=== PATIENT | female | born 1960 | race Caucasian/White ===

== ENCOUNTER → 2019-09-17 | Outpatient (CLI) | payer MEDICARE ==
--- NOTE | 2019-09-17 11:52 | XR ---
EXAMINATION TYPE: XR shoulder complete LT DATE OF EXAM: 09/17/2019 CLINICAL HISTORY: Left shoulder pain after lifting injury. Limited range of motion. TECHNIQUE: Three views of the left shoulder are obtained. COMPARISON: None. FINDINGS: There is no acute fracture/dislocation evident in the left shoulder. Calcific tendinopathy is seen of the insertional fibers of the rotator cuff. The acromioclavicular and glenohumeral joint spaces appear aligned. Moderate acromioclavicular arthropathy with small marginal osteophytes and cap sular hypertrophy. The visualized ribs are intact and unremarkable. IMPRESSION: 1. No acute fracture or dislocation in the left shoulder. 2. Moderate left acromioclavicular arthropathy and calcific tendinopathy of the rotator cuff insertio nal fibers.
== END | disposition home or self-care (01) ==
LOC: RADXRMAIN 11:16
PROVIDERS: ATTEND Internal Medicine
DX: M12.812 Other specific arthropathies, not elsewhere classified, left shoulder (principal)

== ENCOUNTER 2020-09-24 20:18 | Inpatient (IN) | payer MEDICARE ==
[2020-09-24] MEDS ORDERED: ACETAMINOPHEN TAB 500 MG TAB PO STA (21:21)
[2020-09-24] MEDS: SODIUM CHLORIDE 0.9% 500 ML 500 ML IV SCH ×2 (21:38→23:18)
[2020-09-24] MEDS: SODIUM CHLORIDE 0.9% 1,000 ML IV SCH ×2 (21:38→23:19)
--- NOTE | 2020-09-24 21:50 | XR ---
EXAMINATION TYPE: XR chest 1V portable DATE OF EXAM: 09/24/2020 COMPARISON: NONE HISTORY: Asthma. Of breath TECHNIQUE: Manuel view FINDINGS: There is some increased interstitial pulmonary density in both lungs. There is no heart violette lure. There are no hilar masses. There is no pleural effusion. There is right shoulder surgery noted. IMPRESSION: Mild pulmonary interstitial pneumonia that appears new compared to old exam. Normal heart .
--- NOTE | 2020-09-24 22:14 | ED ---
General Adult HPI - General Stated complaint: Abd Pain Time Seen by Provider: 09/24/20 20:30 Source: patient Mode of arrival: EMS Limitations: no limitations - History of Present Illness Initial comments: Jessica weeks 59-year-old female who presents the ER today via ambulance for evaluation of multiple complaints. Patient reports she began feeling sick last week. She had a television set with her primary care doctor and states she was prescribed 5 prescriptions one of which was azithromycin 1 was a steroid. She states that despite being compliant with these medications she is progressively felt worse. Today her son called her home multiple times and she did not answer so he went to her house to check on her and found her laying in bed, she appeared to be febrile she was sweating she states she didn't feel good had generalized body aches some stomach pain. She had not been eating or drinking. Patient reports mild cough no shortness of breath no chest pain. - Related Data Home Medications Medication Instructions Recorded Confirmed Albuterol Sulfate [Albuterol 2 puff PO RT-Q6H PRN 09/24/20 09/24/20 Sulfate Hfa] Amoxic-Pot Clav 875-125Mg 1 tab PO BID 09/24/20 09/24/20 [Augmentin 875-125] Gabapentin 600 mg PO TID 09/24/20 09/24/20 Ibuprofen [Motrin] 800 mg PO Q8H PRN 09/24/20 09/24/20 Lisinopril-Hctz 20-25 mg 1 tab PO DAILY 09/24/20 09/24/20 [Zestoretic 20-25] Montelukast Sodium [Singulair] 10 mg PO DAILY 09/24/20 09/24/20 Pioglitazone [Actos] 45 mg PO DAILY 09/24/20 09/24/20 Sertraline [Zoloft] 200 mg PO DAILY 09/24/20 09/24/20 amLODIPine [Norvasc] 5 mg PO DAILY 09/24/20 09/24/20 metFORMIN HCL 1,000 mg PO HS 09/24/20 09/24/20 metFORMIN HCL 1,500 mg PO DAILY 09/24/20 09/24/20 oxyCODONE HCL [oxyCODONE HCL (IR)] 15 mg PO QID PRN 09/24/20 09/24/20 predniSONE See Taper PO DIRECTED 09/24/20 09/24/20 tiZANidine HCL 4 mg PO Q8H PRN 09/24/20 09/24/20 Allergies Allergy/AdvReac Type Severity Reaction Status Date / Time ciprofloxacin [From Cipro] Allergy Rash/Hives Verified 09/24/20 22:20 Review of Systems ROS Statement: Those systems with pertinent positive or pertinent negative responses have been documented in the HPI. ROS Other: All systems not noted in ROS Statement are negative. Past Medical History History of Any Multi-Drug Resistant Organisms: None Reported Past Surgical History: Orthopedic Surgery Past Psychological History: No Psychological Hx Reported Smoking Status: Never smoker Past Alcohol Use History: None Reported Past Drug Use History: None Reported General Exam - General Exam Comments Initial Comments: Physical Exam GENERAL: Ill appearing female HENT: Normocephalic, Atraumatic. EYES: PERRL, EOMI PULMONARY: Unlabored respirations. CARDIOVASCULAR: RRR ABDOMEN: Soft and nontender with normal bowel sounds. SKIN: Warm, moist : Deferred NEUROLOGIC: Patient is alert and oriented x3. Moving all extremities spontaneously MUSCULOSKELETAL: Normal extremities with adequate strength and full range of motion. No lower extremity swelling or edema. No calf tenderness. PSYCHIATRIC: Normal psychiatric evaluation. Limitations: no limitations Course Vital Signs 09/24/20 09/24/20 20:38 23:16 Temperature 99.2 F 99.7 F H Pulse Rate 90 89 Respiratory 18 18 Rate Blood Pressure 128/93 155/82 O2 Sat by Pulse 96 97 Oximetry EKG Findings - EKG Comments: EKG Findings:: EKG was obtained as part a septic workup, EKG was obtained 2232, rate is 80 rhythm is sinus normal axis, normal intervals, CO 160, QRS 80, QTC 445 there are no acute ST elevations or depressions no evidence of ischemia, infarction or arrhythmia. Medical Decision Making - Medical Decision Making the patient was seen and evaluated history was obtained from patient and son at bedside Patient has been ill for approximately a week, on evaluation she appears as though she does not feel well Signs are stable there is no hypoxia The patient's age and duration of illness a septic workup was initiated S x-ray with evidence of pneumonia this is likely viral in the setting She has low lymphocytes, elevated LDH and ferritin these are concerning for likely COVID 19 She also has hyponatremia likely related to decreased oral intak, receiving IV fluids given the duration of the patient's illness her age and comorbidities including diabetes and morbid obesity I do feel she warrants admission for fluid resus citation and further observation. Patient is agreeable to this plan patient care was discussed with Dr. Quezada of the [facility] physician group who accepts the admission COVID positive, patient to be admitted - Lab Data Result diagrams: 09/26/20 13:02 09/26/20 13:02 Lab Results 09/24/20 09/24/20 09/24/20 Range/Units 22:00 22:10 22:10 WBC 6.2 (3.8-10.6) k/uL RBC 4.39 (3.80-5.40) m/uL Hgb 12.9 (11.4-16.0) gm/dL Hct 38.0 (34.0-46.0) % MCV 86.6 (80.0-100.0) fL MCH 29.4 (25.0-35.0) pg MCHC 34.0 (31.0-37.0) g/dL RDW 12.2 (11.5-15.5) % Plt Count 185 (150-450) k/uL MPV 8.0 Neutrophils % 83 % Lymphocytes % 11 % Monocytes % 3 % Eosinophils % 1 % Basophils % 1 % Neutrophils # 5.1 (1.3-7.7) k/uL Lymphocytes # 0.7 L (1.0-4.8) k/uL Monocytes # 0.2 (0-1.0) k/uL Eosinophils # 0.0 (0-0.7) k/uL Basophils # 0.0 (0-0.2) k/uL PT 9.8 (9.0-12.0) sec INR 0.9 (<1.2) APTT 22.1 (22.0-30.0) sec D-Dimer 0.55 (<0.60) mg/L FEU Sodium (137-145) mmol/L Potassium (3.5-5.1) mmol/L Chloride (98-107) mmol/L Carbon Dioxide (22-30) mmol/L Anion Gap mmol/L BUN (7-17) mg/dL Creatinine (0.52-1.04) mg/dL Est GFR (CKD-EPI)AfAm (>60 ml/min/1.73 sqM) Est GFR (CKD-EPI)NonAf (>60 ml/min/1.73 sqM) Glucose (74-99) mg/dL Plasma Lactic Acid Nish (0.7-2.0) mmol/L Calcium (8.4-10.2) mg/dL Magnesium (1.6-2.3) mg/dL Ferritin (10.0-291.0) ng/mL Total Bilirubin (0.2-1.3) mg/dL AST (14-36) U/L ALT (4-34) U/L Alkaline Phosphatase (38-126) U/L Lactate Dehydrogenase (313-618) U/L Creatine Kinase (30-135) U/L C-Reactive Protein (<10.0) mg/L Total Protein (6.3-8.2) g/dL Albumin (3.5-5.0) g/dL Procalcitonin (0.02-0.09) ng/mL Coronavirus (PCR) Detected A (Not Detectd) 09/24/20 09/24/20 09/24/20 Range/Units 22:10 22:10 22:10 WBC (3.8-10.6) k/uL RBC (3.80-5.40) m/uL Hgb (11.4-16.0) gm/dL Hct (34.0-46.0) % MCV (80.0-100.0) fL MCH (25.0-35.0) pg MCHC (31.0-37.0) g/dL RDW (11.5-15.5) % Plt Count (150-450) k/uL MPV Neutrophils % % Lymphocytes % % Monocytes % % Eosinophils % % Basophils % % Neutrophils # (1.3-7.7) k/uL Lymphocytes # (1.0-4.8) k/uL Monocytes # (0-1.0) k/uL Eosinophils # (0-0.7) k/uL Basophils # (0-0.2) k/uL PT (9.0-12.0) sec INR (<1.2) APTT (22.0-30.0) sec D-Dimer (<0.60) mg/L FEU Sodium 129 L (137-145) mmol/L Potassium 4.4 (3.5-5.1) mmol/L Chloride 98 (98-107) mmol/L Carbon Dioxide 19 L (22-30) mmol/L Anion Gap 12 mmol/L BUN 20 H (7-17) mg/dL Creatinine 0.61 (0.52-1.04) mg/dL Est GFR (CKD-EPI)AfAm >90 (>60 ml/min/1.73 sqM) Est GFR (CKD-EPI)NonAf >90 (>60 ml/min/1.73 sqM) Glucose 347 H (74-99) mg/dL Plasma Lactic Acid Nish 1.1 (0.7-2.0) mmol/L Calcium 8.9 (8.4-10.2) mg/dL Magnesium 1.5 L (1.6-2.3) mg/dL Ferritin 239.2 (10.0-291.0) ng/mL Total Bilirubin 0.7 (0.2-1.3) mg/dL AST 32 (14-36) U/L ALT 28 (4-34) U/L Alkaline Phosphatase 78 (38-126) U/L Lactate Dehydrogenase 815 H (313-618) U/L Creatine Kinase 38 (30-135) U/L C-Reactive Protein 137.0 H (<10.0) mg/L Total Protein 6.8 (6.3-8.2) g/dL Albumin 3.7 (3.5-5.0) g/dL Procalcitonin 0.09 (0.02-0.09) ng/mL Coronavirus (PCR) (Not Detectd) Disposition Clinical Impression: Pneumonia Disposition: ADMITTED IP TO THIS HOSP Condition: Stable Is patient prescribed a controlled substance at d/c from ED?: No
[2020-09-24 22:23] LABS: Basophils % (A) 1 %; Eosinophils % (A) 1 %; HGB 12.9 gm/dL (11.4-16.0); Lymphocytes # (A) 0.7 k/uL (1.0-4.8); Lymphocytes % (A) 11 %; MCH 29.4 pg (25.0-35.0); MCV 86.6 fL (80.0-100.0); Monocytes # (A) 0.2 k/uL (0-1.0); Monocytes % (A) 3 %; Neutrophils # (A) 5.1 k/uL (1.3-7.7); Neutrophils % (A) 83 %; Platelet Count 185 k/uL (150-450); RBC 4.39 m/uL (3.80-5.40); RDW 12.2 % (11.5-15.5); WBC 6.2 k/uL (3.8-10.6)
[2020-09-24 22:37] LABS: ALT 28 U/L (4-34); AST 32 U/L (14-36); African American GFR (CKD) >90 (>60 ml/min/1.73 sqM); Albumin 3.7 g/dL (3.5-5.0); Alkaline Phosphatase 78 U/L (38-126); Anion Gap 12 mmol/L; Blood Urea Nitrogen 20 mg/dL (7-17); Calcium 8.9 mg/dL (8.4-10.2); Carbon Dioxide 19 mmol/L (22-30); Chloride 98 mmol/L (98-107); Creatine Kinase 38 U/L (30-135); D-Dimer 0.55 mg/L FEU (<0.60); Glucose 347 mg/dL (74-99); INR 0.9 (<1.2); LDH 815 U/L (313-618); Magnesium 1.5 mg/dL (1.6-2.3); Non-African American GFR(CKD) >90 (>60 ml/min/1.73 sqM); Partial Thromboplastin Time 22.1 sec (22.0-30.0); Potassium 4.4 mmol/L (3.5-5.1); Prothrombin Time 9.8 sec (9.0-12.0); Sodium 129 mmol/L (137-145); Total Bilirubin 0.7 mg/dL (0.2-1.3); Total Protein 6.8 g/dL (6.3-8.2)
[2020-09-24] MEDS ORDERED: NALOXONE 0.4 MG/ML 1 ML VIAL IV PRN (22:52)
[2020-09-25] MEDS ORDERED: ONDANSETRON 4 MG/2 ML VIAL IVP STA (00:36)
[2020-09-25] MEDS: SODIUM CHLORIDE 0.9% 500 ML 500 ML IV SCH (00:44)
--- NOTE | 2020-09-25 01:43 | P.HPIM ---
History of Present Illness H&P Date: 09/25/20 Patient is a 59-year-old female with a PMH of type II DM and hypertension who was brought into the emergency room via EMS for multiple complaints. The patient notes that her symptoms initially started 10 days ago when she felt the onset of mild nonproductive cough. She subsequently developed low-grade fevers which gradually worsened accompanied by diffuse body aches and fatigue. She reports cough productive of yellow-green phlegm with shortness of breath. Patient also notes that over the past 4 days she has had 4 out of 10 epigastric abdominal discomfort, diarrhea and severe nausea without vomiting The patient subsequently saw her primary care physician via telemedicine on 09/18 who then prescribed her Azithromycin 5 day course along with a prednisone taper which the patient completed a day ago with no improvement in her symptoms. The patient's son had reportedly tried to call her multiple times times and when he received no answer, he went to her home where he found her laying in bed diaphoretic and complaining that she does not feel well. She denied chest pain, headaches, visu al disturbances, or dizziness. In the emergency room, an EKG revealed normal sinus rhythm at 80 bpm with no acute ischemic ST/T-wave changes noted as reviewed by me. Chest x-ray revealed bilateral interstitial pneumonia. Laboratory evaluation was remarkable for coronavirus PCR positive, sodium 129, CO2 19, BUN 20, glucose 347, magnesium 1.5, LDH 815, and CRP 137. Review of Systems Pertinent positives and negatives as discussed in HPI, a complete review of systems was performed and all other systems are negative. Past Medical History Past Medical History: Asthma, Diabetes Mellitus, Hypertension, Pneumonia History of Any Multi-Drug Resistant Organisms: None Reported Past Surgical History: Orthopedic Surgery Additional Past Surgical History / Comment(s): bilat knees surgery and right shoulder repaired, left shoulder torn Past Anesthesia/Blood Transfusion Reactions: No Reported Reaction Past Psychological History: Anxiety, Depression Smoking Status: Never smoker Past Alcohol Use History: None Reported Past Drug Use History: None Reported Medications and Allergies Home Medications Medication Instructions Recorded Confirmed Type Albuterol Sulfate [Albuterol 2 puff PO RT-Q6H PRN 09/24/20 09/24/20 History Sulfate Hfa] Amoxic-Pot Clav 875-125Mg 1 tab PO BID 09/24/20 09/24/20 History [Augmentin 875-125] Gabapentin 600 mg PO TID 09/24/20 09/24/20 History Ibuprofen [Motrin] 800 mg PO Q8H PRN 09/24/20 09/24/20 History Lisinopril-Hctz 20-25 mg 1 tab PO DAILY 09/24/20 09/24/20 History [Zestoretic 20-25] Montelukast Sodium [Singulair] 10 mg PO DAILY 09/24/20 09/24/20 History Pioglitazone [Actos] 45 mg PO DAILY 09/24/20 09/24/20 History Sertraline [Zoloft] 200 mg PO DAILY 09/24/20 09/24/20 History amLODIPine [Norvasc] 5 mg PO DAILY 09/24/20 09/24/20 History metFORMIN HCL 1,000 mg PO HS 09/24/20 09/24/20 History metFORMIN HCL 1,500 mg PO DAILY 09/24/20 09/24/20 History oxyCODONE HCL [oxyCODONE HCL (IR)] 15 mg PO QID PRN 09/24/20 09/24/20 History predniSONE See Taper PO DIRECTED 09/24/20 09/24/20 History tiZANidine HCL 4 mg PO Q8H PRN 09/24/20 09/24/20 History Allergies Allergy/AdvReac Type Severity Reaction Status Date / Time ciprofloxacin [From Cipro] Allergy Rash/Hives Verified 09/24/20 22:20 Physical Exam Vitals: Vital Signs Temp Pulse Resp BP Pulse Ox 09/24/20 23:16 99.7 F H 89 18 155/82 97 09/24/20 20:38 99.2 F 90 18 128/93 96 Intake and Output 09/24/20 09/24/20 09/25/20 14:59 22:59 06:59 Other: Weight 113.398 kg 113.398 kg General: Somewhat ill-appearing female, appears uncomfortable, appears at stated age, morbidly obese Derm: no unusual rashes/lesions no unusual ecchymoses, warm, dry Head: atraumatic, normocephalic, symmetric Eyes: EOMI, no lid lag, anicteric sclera, pupils equal round reactive to light ENT: Nose and ears atraumatic Neck: No thyromegaly, no cervical lymphadenopathy, trachea midline, supple Mouth: no lip lesion, mucus membranes moist Cardiovascular: S1S2 reg, no murmur, positive posterior tibial pulse bilateral, no edema, capillary refill less than 2 seconds Lungs: Mild bilateral rhonchi, no rales , no accessory muscle use Abdominal: soft, nontender to palpation, no guarding, no appreciable organomegaly, normal bowel sounds Ext: no gross muscle atrophy, muscle strength 4 out of 5 in all 4 extremities grossly, no contractures, Neuro: CN II-XI grossly intact, light touch intact all 4 extremities, finger to nose within normal limits, Psych: Alert, oriented, appropriate affect Results CBC & Chem 7: 09/24/20 22:10 09/24/20 22:10 Labs: Abnormal Lab Results - Last 24 Hours (Table) 09/24/20 09/24/20 09/24/20 Range/Units 22:00 22:10 22:10 Lymphocytes # 0.7 L (1.0-4.8) k/uL Sodium 129 L (137-145) mmol/L Carbon Dioxide 19 L (22-30) mmol/L BUN 20 H (7-17) mg/dL Glucose 347 H (74-99) mg/dL Magnesium 1.5 L (1.6-2.3) mg/dL Lactate Dehydrogenase 815 H (313-618) U/L C-Reactive Protein 137.0 H (<10.0) mg/L Coronavirus (PCR) Detected A (Not Detectd) Thrombosis Risk Factor Assmnt - Choose All That Apply Each Factor Represents 1 point: Age 41-60 years, Obesity (BMI >25) Thrombosis Risk Factor Assessment Total Risk Factor Score: 2 Thrombosis Risk Factor Assessment Level: Low Risk Assessment and Plan Plan: COVID-19 pneumonitis -Isolation precautions -Melatonin, vitamin C, vitamin D, zinc -Monitor inflammatory markers -Pulmonary consult -Supplemental oxygen -Check procalcitonin Hypomagnesemia -Replace and monitor Hyponatremia -Likely secondary to poor oral intake -Continue IV fluids and monitor for now Chronic conditions: Type 2 DM, HTN -C/w home meds -Hold oral hypoglycemics -Lispro sliding scale and blood glucose monitoring DVT prophylaxis -Lovenox The patient is admitted with an anticipated greater than 2 midnight stay for evaluation of COVID CODE STATUS: Full Code Discussed with: Patient Anticipated discharge date: 3-[address]: Home A total of 35 minutes was spent on the care of this complex patient more than 50% of the time was spent in counseling and care coordination
[2020-09-25] MEDS: MAGNESIUM SULFATE-D5W PMX 1 GM in DEXTROSE/WATER 1 100ML.BAG IVPB SCH ×2 (01:57→02:59)
[2020-09-25] MEDS ORDERED: ONDANSETRON 4 MG/2 ML VIAL IM PRN (02:03)
[2020-09-25 02:49] LABS: Ferritin 239.2 ng/mL (10.0-291.0)
[2020-09-25 07:13] LABS: Glucose,Whole Blood 325 mg/dL (75-99)
[2020-09-25] MEDS: INSULIN ASPART (NovoLOG) 100 UNIT/ML VIAL SQ SCH ×4 (07:42→21:46)
[2020-09-25] MEDS: ENOXAPARIN 40 MG/0.4 ML SYRINGE SQ SCH (07:42)
[2020-09-25] MEDS: amLODIPine 5 MG TAB PO SCH (07:43)
[2020-09-25] MEDS: MONTELUKAST 10 MG TAB PO SCH (07:43)
[2020-09-25] MEDS: ZINC SULFATE 220 MG CAP PO SCH (07:43)
[2020-09-25] MEDS: ASCORBIC ACID 500 MG TAB PO SCH (07:43)
[2020-09-25] MEDS: lisinopriL 20 MG TAB PO SCH (07:43)
[2020-09-25] MEDS: GABAPENTIN 300 MG CAP PO SCH ×3 (07:43→21:45)
[2020-09-25] MEDS: CHOLECALCIFEROL 25 MCG (1000 IU) TABLET PO SCH (07:43)
[2020-09-25] MEDS: SERTRALINE 100 MG TAB PO SCH (07:44)
[2020-09-25] MEDS ORDERED: tiZANidine 4 MG TAB PO PRN (07:53)
[2020-09-25] MEDS: ONDANSETRON 4 MG/2 ML VIAL IVP PRN (08:08)
[2020-09-25] MEDS: dexAMETHasone 2 MG TAB PO SCH (09:59)
[2020-09-25] MEDS: COLCHICINE 0.6 MG EACH PO SCH ×2 (10:00→21:48)
[2020-09-25 10:38] LABS: African American GFR (CKD) 94.9 (60.0-200.0); Anion Gap 15.8 mmol/L (4.00-12.00); Calcium 8.5 mg/dL (8.7-10.3); Carbon Dioxide 18.2 mmol/L (21.6-31.8); Magnesium 2.1 mg/dL (1.5-2.4); Non-African American GFR(CKD) 81.8 (60.0-200.0); Potassium 4.5 mmol/L (3.5-5.5)
[2020-09-25 11:44] LABS: Glucose,Whole Blood 291 mg/dL (75-99)
--- NOTE | 2020-09-25 13:05 | P.CNPUL ---
History of Present Illness Consult date: 09/25/20 Requesting physician: Jamilah Quezada Reason for consult: dyspnea, cough Chief complaint: Cough, low-grade fevers, diffuse body aches and fatigue, COVID 19 pneumonia History of present illness: This is a 59-year-old white female patient with past medical history of mild intermittent bronchial asthma, diabetes mellitus type 2, hypertension, previous episode of pneumonia, anxiety, depression, obesity, lifetime nonsmoker, who presented to the emergency department on 09/24/2020 with complaints of cough, dyspnea. Her symptoms started about 10 days ago with not feeling well, low- grade fever, diffuse body aches. She does admit to having nausea and diarrhea. She hasn't been able to eat much or drink related to stomach aches, nausea and diarrhea. She had a telemetry health visit with her primary care provider, BEN Jean, and was given an antibiotic, steroids, and an inhaler. Her cough is productive of yellow phlegm. Denied any hemoptysis, denied any chest discomfort. Denied any headaches, denied any lightheadedness, dizziness, no visual disturbances. Chest x-ray showed bilateral interstitial pneumonia. COVID 19 PCR was positive, LDH was 815, CRP was 137, patient was lymphopenic with lymphocyte count of 0.7, the rest of the CBC was within normal limits, d- dimer was 0.55, sodium was 129, BUN is 20, creatinine 0.61, CO2 was 19, possibly lactic acid was 1.1, LFTs were within normal limits, pro-calcitonin level was 0.09. Serum glucose level was 347. Patient is on oral Decadron 6 mg daily, she is on prophylactic dose Lovenox, she is on IV hydration at the 130 ML per hour. T-max is 99.7F over the last 24 hours, room air pulse ox is currently 93%. Review of Systems All systems: negative Constitutional: Reports fatigue, Reports fever, Reports weakness, Denies chills Eyes: denies blurred vision, denies pain Ears, nose, mouth and throat: Denies headache, Denies sore throat Cardiovascular: Denies chest pain, Denies shortness of breath Respiratory: Reports cough, Reports dyspnea Gastrointestinal: Denies abdominal pain, Denies diarrhea, Denies nausea, Denies vomiting Genitourinary: Denies dysuria, Denies hematuria Musculoskeletal: Denies myalgias Integumentary: Denies pruritus, Denies rash Neurological: Denies numbness, Denies weakness Psychiatric: Denies anxiety, Denies depression Endocrine: Denies fatigue, Denies weight change Past Medical History Past Medical History: Asthma, Diabetes Mellitus, Hypertension, Pneumonia History of Any Multi-Drug Resistant Organisms: None Reported Past Surgical History: Orthopedic Surgery Additional Past Surgical History / Comment(s): bilat knees surgery and right shoulder repaired, left shoulder torn Past Anesthesia/Blood Transfusion Reactions: No Reported Reaction Past Psychological History: Anxiety, Depression Smoking Status: Never smoker Past Alcohol Use History: None Reported Past Drug Use History: None Reported Medications and Allergies Home Medications Medication Instructions Recorded Confirmed Type Albuterol Sulfate [Albuterol 2 puff PO RT-Q6H PRN 09/24/20 09/24/20 History Sulfate Hfa] Amoxic-Pot Clav 875-125Mg 1 tab PO BID 09/24/20 09/24/20 History [Augmentin 875-125] Gabapentin 600 mg PO TID 09/24/20 09/24/20 History Ibuprofen [Motrin] 800 mg PO Q8H PRN 09/24/20 09/24/20 History Lisinopril-Hctz 20-25 mg 1 tab PO DAILY 09/24/20 09/24/20 History [Zestoretic 20-25] Montelukast Sodium [Singulair] 10 mg PO DAILY 09/24/20 09/24/20 History Pioglitazone [Actos] 45 mg PO DAILY 09/24/20 09/24/20 History Sertraline [Zoloft] 200 mg PO DAILY 09/24/20 09/24/20 History amLODIPine [Norvasc] 5 mg PO DAILY 09/24/20 09/24/20 History metFORMIN HCL 1,000 mg PO HS 09/24/20 09/24/20 History metFORMIN HCL 1,500 mg PO DAILY 09/24/20 09/24/20 History oxyCODONE HCL [oxyCODONE HCL (IR)] 15 mg PO QID PRN 09/24/20 09/24/20 History predniSONE See Taper PO DIRECTED 09/24/20 09/24/20 History tiZANidine HCL 4 mg PO Q8H PRN 09/24/20 09/24/20 History Allergies Allergy/AdvReac Type Severity Reaction Status Date / Time ciprofloxacin [From Cipro] Allergy Rash/Hives Verified 09/24/20 22:20 Physical Exam Vitals: Vital Signs Temp Pulse Pulse Resp BP BP Pulse Ox 09/25/20 11:11 99.1 F 71 16 136/81 93 L 09/25/20 07:50 93 L 09/25/20 05:46 98.4 F 69 161/72 97 09/25/20 00:47 98.2 F 83 192/93 95 09/24/20 23:16 99.7 F H 89 18 155/82 97 09/24/20 20:38 99.2 F 90 18 128/93 96 Intake and Output 09/24/20 09/25/20 09/25/20 22:59 06:59 14:59 Other: # Voids 3 # Bowel Movements 1 Weight 113.398 kg 113.398 kg GENERAL EXAM: Alert, very pleasant, 59-year-old white female, on room air, with a pulse ox of 93% comfortable in no apparent distress. HEAD: Normocephalic/atraumatic. EYES: Normal reaction of pupils, equal size. Conjunctiva pink, sclera white. NOSE: Clear with pink turbinates. THROAT: No erythema or exudates. NECK: No masses, no JVD, no thyroid enlargement, no adenopathy. CHEST: No chest wall deformity. Symmetrical expansion. LUNGS: Equal air entry with bilateral crackles CVS: Regular rate and rhythm, normal S1 and S2, no gallops, no murmurs, no rubs ABDOMEN: Soft, nontender. No hepatosplenomegaly, normal bowel sounds, no guarding or rigidity. EXTREMITIES: No clubbing, no edema, no cyanosis, 2+ pulses and upper and lower extremities. MUSCULOSKELETAL: Muscle strength and tone normal. SPINE: No scoliosis or deformity SKIN: No rashes CENTRAL NERVOUS SYSTEM: Alert and oriented -3. No focal deficits, tone is normal in all 4 extremities. PSYCHIATRIC: Alert and oriented -3. Appropriate affect. Intact judgment and insight. Results - Laboratory Findings CBC and BMP: 09/24/20 22:10 09/25/20 06:20 PT/INR, D-dimer PT 9.8 sec (9.0-12.0) 09/24/20 22:10 INR 0.9 (<1.2) 09/24/20 22:10 D-Dimer 0.55 mg/L FEU (<0.60) 09/24/20 22:10 Abnormal lab findings: Abnormal Labs 09/24/20 09/24/20 09/24/20 22:00 22:10 22:10 Lymphocytes # 0.7 L Sodium 129 L Carbon Dioxide 19 L Anion Gap BUN 20 H BUN/Creatinine Ratio Glucose 347 H POC Glucose (mg/dL) Calcium Magnesium 1.5 L Lactate Dehydrogenase 815 H C-Reactive Protein 137.0 H Coronavirus (PCR) Detected A 09/25/20 09/25/20 09/25/20 06:20 07:11 11:43 Lymphocytes # Sodium 134 L Carbon Dioxide 18.2 L Anion Gap 15.80 H BUN BUN/Creatinine Ratio 25.00 H Glucose 343 H POC Glucose (mg/dL) 325 H 291 H Calcium 8.5 L Magnesium Lactate Dehydrogenase C-Reactive Protein Coronavirus (PCR) - Diagnostic Findings Chest x-ray: report reviewed, image reviewed Additional studies: EKG reviewed Assessment and Plan Plan: Assessment: #1. Acute hypoxic respiratory failure, mild at this point, related to acute COVID 19 pneumonia. Onset of symptoms was 10 days prior to her presentation, and patient is out of the therapeutic window for Remdesivir #2. Failure of outpatient treatment, patient was started on azithromycin and prednisone taper for her symptoms of shortness of breath, cough, by her PCP #3. Increased inflammatory markers related to acute COVID 19 pneumonia #4. Hyponatremia, related to hypovolemia, patient has been having symptoms of nausea and diarrhea, decreased oral intake on outpatient basis #5. Mild intermittent bronchial asthma #6. Never smoker #7. Hypertension #8. Diabetes mellitus type 2 #9. Anxiety/depression Plan: Continue current dose of Decadron, we will add colchicine 0.6 mg twice a day, continue Ventolin, continue prophylactic dose of Lovenox. Continue IV hydration, vitamin C, D, zinc and melatonin. Chest x-ray results have been noted, lab results have been noted, patient is out of the therapeutic window for Remdesivir. Follow-up chest x-ray and inflammatory markers tomorrow. We'll continue to follow I performed a history & physical examination of the patient and discussed their management with my nurse practitioner, Shell Murphy. I reviewed the nurse practitioner's note and agree with the documented findings and plan of care. Lung sounds are positive for diminished breath sounds. The findings and the impression was discussed with the patient. I attest to the documentation by the nurse practitioner. Time with Patient: Greater than 30
[2020-09-25 14:32] LABS: Appearance,Urine Clear (Clear); Bilirubin,Urine Negative (Negative); Blood,Urine Negative (Negative); Color,Urine Light Yellow; Glucose,Urine (UA) 4+ (Negative); Leukocyte Esterase,Urine Negative (Negative); Nitrite,Urine Negative (Negative); PH, Urine 6.5 (5.0-8.0); Protein,Urine Trace (Negative); Specific Gravity,Urine 1.029 (1.001-1.035); Urobilinogen,Urine <2.0 mg/dL (<2.0)
--- NOTE | 2020-09-25 14:45 | P.PN ---
<Laurent Shankar - Last Filed: 09/25/20 14:09> Subjective Progress Note Date: 09/25/20 Principal diagnosis: COVID Pneumonia Hospital course: Patient is a 59-year-old female with a past medical history including hypertension, diabetes mellitus type 2, neuropathy, chronic back pain, mild intermittent bronchial asthma, anxiety, depression, and obesity. She presented to [facility] with a chief complaint of generalized fatigue, weakness, productive cough, and shortness of breath. Patient states the symptoms presented approximately 10 days ago and have been accompanied by a low- grade fever, productive cough of yellow phlegm, body aches, chills, and a decreased appetite. Patient reports she was seen and evaluated via tele-med by her PCP Dr. Bailey last week and was placed on an azithromycin, prednisone and an inhaler. She states she took as prescribed, but her symptoms continued to worsen and over the past 48 hours she states that she became "too sick to take my medications" and reports that she then began having additional symptoms including diffuse abdominal pain/cramping accompanied by nausea, vomiting, diarrhea, and diaphoresis. Patient was seen and fully evaluated in emergency department and found to be POSITIVE for COVID 19 virus infection per PCR, have mild pulmonary bilateral interstitial pneumonia per CXR findings, and labs revealed an elevated CRP of 137.0, LDH of 815, hypomagnesemia with magnesium of 1.5, and hyponatremia with sodium 129. Pt was admitted under our services for treatment of Covid pneumonia at this time. Physical exam: General: non toxic, no distress, appears at stated age Derm: warm, dry Head: atraumatic, normocephalic, symmetric Eyes: EOMI, no lid lag, anicteric sclera Mouth: no lip lesion, mucus membranes moist Cardiovascular: Regular rate and rhythm, no murmur, positive posterior tibial pulses bilaterally, cap refill less than 2 seconds Lungs: Respirations even, regular, and unlabored on room air. Lungs with soft crackles at bilateral bases posteriorly, no coarse rhonchi, rales, or expiratory wheezes present. Abdominal: soft, nontender to palpation, no guarding, no appreciable organomegaly Ext: no gross muscle atrophy, no edema, no contractures Neuro: GCS 15. Speech clear. CN II-XI grossly intact, no focal neuro deficits Psych: Alert, oriented, appropriate affect Assessment Plan of Care: COVID Pneumonia -POSITIVE for COVID 19 virus infection per PCR on 09/24/20. Reports symptoms began 10 days ago. -Chest x-ray revealing mild pulmonary bilateral interstitial pneumonia. -Decadron 6 mg daily (day 1 of steroids) -Gentle hydration with IV fluids. -Vitamin C, vitamin D, zinc, and melatonin. -Oxygenation to be administered as needed and titrated as needed to maintain SPO2 equal to or greater than 92%. -Telemetry monitoring. -Continuous Pulse-oximetry -MDIs as needed for SOB and/or wheezing -Incentive Spirometry -Continued close monitoring with repeat daily CBC, CMP, CRP, LDH, and ferritin. Diabetes mellitus type 2 with hyperglycemia -Hold oral glycemic medications Actos and metformin. Patient placed on Glycemic protocol with NovoLog sliding scale. -Heart healthy carb consistent diet. Hypomagnesemia, resolved -Initial magnesium 1.5. This was replaced with 2 g magnesium sulfate IVPB with repeat magnesium of 2.1. Hyponatremia, improving -Initial sodium 129 with repeat of 134. -Continued gentle hydration with IV fluids. Hypertension -Monitor vital signs and Continue daily medication regimen with Norvasc and lisinopril. Anxiety and depression -Continue daily medication regimen with Zoloft. Chronic back pain with neuropathy -Continue daily medication management with Oxycodone, zanaflex, and Neurontin as prescribed by pain management physician. CODE STATUS: Full code DVT prophylaxis: Lovenox Discussed with: Patient and RN Anticipated discharge date: Clinical course to determine Anticipated discharge place: Home A total of 40 minutes was spent on the care of this complex patient more than 50% of the time was spent in counseling and care coordination. Objective - Vital Signs Vital signs: Vital Signs Temp 98.4 F 09/25/20 05:46 Pulse 69 09/25/20 05:46 Resp 18 09/24/20 23:16 BP 161/72 09/25/20 05:46 Pulse Ox 93 L 09/25/20 07:50 Intake & Output 09/24/20 09/25/20 09/25/20 18:59 06:59 18:59 Weight 113.398 kg Other: # Voids 3 # Bowel Movements 1 - Labs CBC & Chem 7: 09/24/20 22:10 09/25/20 06:20 Labs: Abnormal Lab Results - Last 24 Hours (Table) 02/09/24/20 09/24/20 Range/Units 22:00 22:10 22:10 Lymphocytes # 0.7 L (1.0-4.8) k/uL Sodium 129 L (137-145) mmol/L Carbon Dioxide 19 L (22-30) mmol/L BUN 20 H (7-17) mg/dL Glucose 347 H (74-99) mg/dL POC Glucose (mg/dL) (75-99) mg/dL Magnesium 1.5 L (1.6-2.3) mg/dL Lactate Dehydrogenase 815 H (313-618) U/L C-Reactive Protein 137.0 H (<10.0) mg/L Coronavirus (PCR) Detected A (Not Detectd) 09/25/20 Range/Units 07:11 Lymphocytes # (1.0-4.8) k/uL Sodium (137-145) mmol/L Carbon Dioxide (22-30) mmol/L BUN (7-17) mg/dL Glucose (74-99) mg/dL POC Glucose (mg/dL) 325 H (75-99) mg/dL Magnesium (1.6-2.3) mg/dL Lactate Dehydrogenase (313-618) U/L C-Reactive Protein (<10.0) mg/L Coronavirus (PCR) (Not Detectd) <Radha Herrera A - Last Filed: 09/25/20 16:44> Objective - Vital Signs Vital signs: Vital Signs Temp 98.4 F 09/25/20 14:00 Pulse 61 09/25/20 14:00 Resp 16 09/25/20 14:00 BP 134/71 09/25/20 14:00 Pulse Ox 94 L 09/25/20 14:00 Intake & Output 09/24/20 09/25/20 09/25/20 18:59 06:59 18:59 Weight 113.398 kg Other: # Voids 3 1 # Bowel Movements 1 - Labs CBC & Chem 7: 09/24/20 22:10 09/25/20 06:20 Labs: Abnormal Lab Results - Last 24 Hours (Table) 09/24/20 09/24/20 09/24/20 Range/Units 22:00 22:10 22:10 Lymphocytes # 0.7 L (1.0-4.8) k/uL Sodium 129 L (137-145) mmol/L Carbon Dioxide 19 L (22-30) mmol/L Anion Gap (4.00-12.00) mmol/L BUN 20 H (7-17) mg/dL BUN/Creatinine Ratio (12.00-20.00) Ratio Glucose 347 H (74-99) mg/dL POC Glucose (mg/dL) (75-99) mg/dL Calcium (8.7-10.3) mg/dL Magnesium 1.5 L (1.6-2.3) mg/dL Lactate Dehydrogenase 815 H (313-618) U/L C-Reactive Protein 137.0 H (<10.0) mg/L Urine Protein (Negative) Urine Glucose (UA) (Negative) Urine Ketones (Negative) Coronavirus (PCR) Detected A (Not Detectd) 09/25/20 09/25/20 09/25/20 Range/Units 06:20 07:11 11:43 Lymphocytes # (1.0-4.8) k/uL Sodium 134 L (137-145) mmol/L Carbon Dioxide 18.2 L (22-30) mmol/L Anion Gap 15.80 H (4.00-12.00) mmol/L BUN (7-17) mg/dL BUN/Creatinine Ratio 25.00 H (12.00-20.00) Ratio Glucose 343 H (74-99) mg/dL POC Glucose (mg/dL) 325 H 291 H (75-99) mg/dL Calcium 8.5 L (8.7-10.3) mg/dL Magnesium (1.6-2.3) mg/dL Lactate Dehydrogenase (313-618) U/L C-Reactive Protein (<10.0) mg/L Urine Protein (Negative) Urine Glucose (UA) (Negative) Urine Ketones (Negative) Coronavirus (PCR) (Not Detectd) 09/25/20 Range/Units 14:25 Lymphocytes # (1.0-4.8) k/uL Sodium (137-145) mmol/L Carbon Dioxide (22-30) mmol/L Anion Gap (4.00-12.00) mmol/L BUN (7-17) mg/dL BUN/Creatinine Ratio (12.00-20.00) Ratio Glucose (74-99) mg/dL POC Glucose (mg/dL) (75-99) mg/dL Calcium (8.7-10.3) mg/dL Magnesium (1.6-2.3) mg/dL Lactate Dehydrogenase (313-618) U/L C-Reactive Protein (<10.0) mg/L Urine Protein Trace H (Negative) Urine Glucose (UA) 4+ H (Negative) Urine Ketones 3+ H (Negative) Coronavirus (PCR) (Not Detectd) Assessment and Plan Assessment: Patient seen and examined independently. Patient was also seen by Laurent Shankar NP and case was discussed. I am in agreement with subjective, physical exam, assessment and plan as written above and amended below. Patient seen and examined at bedside. She states that she was nauseous today and not feeling well. She reports all over body aches and continued cough. We discussed that she'll likely be discharged in 1-2 days if her oxygen status remains stable. She was surprised by that answer and felt that she would be here longer. General: Ill-appearing, no distress, appears at stated age Derm: warm, dry Head: atraumatic, normocephalic, symmetric Eyes: EOMI, no lid lag, anicteric sclera Mouth: no lip lesion, mucus membranes moist Cardiovascular: S1S2 reg, no murmur, positive posterior tibial pulse bilateral, Lungs: Coarse breath sounds bilateral, no rhonchi, no rales , no accessory muscle use Ext: no gross muscle atrophy, no edema, no contractures Neuro: CN II-XI grossly intact, no focal neuro deficits Psych: Alert, oriented, appropriate affect Assessment: Acute hypoxic respiratory failure related to COVID 19 pneumonia- treatment as outlined above
[2020-09-25 14:50] LABS: Ketones,Urine 3+ (Negative)
[2020-09-25] MEDS: DICYCLOMINE 10 MG CAP PO SCH ×2 (15:19→21:45)
[2020-09-25] MEDS: IBUPROFEN 800 MG TAB PO PRN (15:21)
[2020-09-25] MEDS: ALBUTEROL HFA INHALER INHALATION PRN (15:30)
[2020-09-25 16:58] LABS: Glucose,Whole Blood 319 mg/dL (75-99)
[2020-09-25 20:46] LABS: Glucose,Whole Blood 311 mg/dL (75-99)
[2020-09-25] MEDS: MELATONIN 5 MG TABLET PO SCH (21:45)
[2020-09-25] MEDS: SODIUM CHLORIDE 0.9% 1,000 ML IV SCH (21:48)
[2020-09-26] MEDS: ALBUTEROL HFA INHALER INHALATION PRN ×4 (04:21→20:07)
[2020-09-26] MEDS: SODIUM CHLORIDE 0.9% 1,000 ML IV SCH ×3 (04:22→20:55)
[2020-09-26 07:13] LABS: Glucose,Whole Blood 355 mg/dL (75-99)
[2020-09-26] MEDS: SERTRALINE 100 MG TAB PO SCH (07:44)
[2020-09-26] MEDS: lisinopriL 20 MG TAB PO SCH (07:44)
[2020-09-26] MEDS: GABAPENTIN 300 MG CAP PO SCH ×3 (07:44→20:54)
[2020-09-26] MEDS: dexAMETHasone 2 MG TAB PO SCH (07:45)
[2020-09-26] MEDS: ZINC SULFATE 220 MG CAP PO SCH (07:45)
[2020-09-26] MEDS: DICYCLOMINE 10 MG CAP PO SCH ×3 (07:45→20:55)
[2020-09-26] MEDS: ASCORBIC ACID 500 MG TAB PO SCH (07:45)
[2020-09-26] MEDS: MONTELUKAST 10 MG TAB PO SCH (07:45)
[2020-09-26] MEDS: CHOLECALCIFEROL 25 MCG (1000 IU) TABLET PO SCH (07:45)
[2020-09-26] MEDS: amLODIPine 5 MG TAB PO SCH (07:45)
[2020-09-26] MEDS: ENOXAPARIN 40 MG/0.4 ML SYRINGE SQ SCH (07:45)
[2020-09-26] MEDS: INSULIN ASPART (NovoLOG) 100 UNIT/ML VIAL SQ SCH ×5 (07:46→20:55)
[2020-09-26] MEDS: COLCHICINE 0.6 MG EACH PO SCH ×2 (07:46→20:55)
--- NOTE | 2020-09-26 11:29 | P.PN ---
Subjective Progress Note Date: 09/26/20 Principal diagnosis: COVID Pneumonia Hospital course: Patient is a 59-year-old female with a past medical history including hypertension, diabetes mellitus type 2, neuropathy, chronic back pain, mild intermittent bronchial asthma, anxiety, depression, and obesity. She presented to [facility] on 09/24/20 with a chief complaint of generalized fatigue, weakness, productive cough, and shortness of breath beginning appr oximately 10 days prior to arrival accompanied by a low-grade fever, productive cough of yellow phlegm, body aches, chills, decreased appetite, nausea, vomiting, diarrhea, and diaphoresis. Patient was found to be positive for Covid 19 virus infection per PCR and have mild pulmonary bilateral interstitial pneumonia per chest x-ray findings. She had an elevated CRP of 137.0, LDH of 815, hypomagnesemia with a magnesium of 1.5, and hyponatremia with sodium of 129. Patient was admitted under our services for treatment of Covid pneumonia requiring supplemental oxygenation and treatment with steroids. CBC, CMP, magnesium, and CRP ordered for draw and pending results at this time. Physical exam: Patient was seen and fully evaluated at the bedside this morning. Patient reports feeling worse this morning than she did yesterday. Patient states upon walking to the bathroom she became significantly short of breath and her oxygen requirements increased from 1 L to 3 L secondary to reports of SpO2 dropping to 91%. Patient reports she feels very winded and tired this morning and cannot stop coughing, additional orders placed at this time for Mucinex 600 mg twice a day and Tessalon Perles 200 mg 3 times daily as needed for cough. Patient is awake and sitting up in chair at bedside. She was on 3 L O2 via nasal cannula with respirations even, regular, and unlabored with SpO2 of 95%. No increased respiratory effort or accessory muscle usage noted. Patient reports that her abdominal pain, nausea, vomiting, and diarrhea have subsided and she denies having any chest pain or palpitations.. General: non toxic, no distress, appears at stated age Derm: warm, dry Head: atraumatic, normocephalic, symmetric Eyes: EOMI, no lid lag, anicteric sclera Mouth: no lip lesion, mucus membranes moist Cardiovascular: Regular rate and rhythm, no murmur, positive posterior tibial pulses bilaterally, cap refill less than 2 seconds Lungs: Respirations even, regular, and unlabored on 3 L O2 via nasal cannula with SpO2 95%. Lungs with soft crackles at bilateral bases posteriorly, no coarse rhonchi, rales, or expiratory wheezes present. Abdominal: soft, nontender to palpation, no guarding, no appreciable organo megaly Ext: no gross muscle atrophy, no edema, no contractures Neuro: GCS 15. Speech clear. CN II-XI grossly intact, no focal neuro deficits Psych: Alert, oriented, appropriate affect Assessment Plan of Care: COVID Pneumonia -POSITIVE for COVID 19 virus infection per PCR on 09/24/20. Reports symptoms began 10 days ago. -Chest x-ray revealing mild pulmonary bilateral interstitial pneumonia. -Decadron 6 mg daily (day 1 of steroids) -Gentle hydration with IV fluids. -Vitamin C, vitamin D, zinc, and melatonin. -Continue to titrate oxygen to maintain SpO2 equal to or greater than 92% begin weaning from oxygen as soon as patient is able. -Telemetry monitoring. -Continuous Pulse-oximetry -MDIs as needed for SOB and/or wheezing -Incentive Spirometry, patient again encouraged to use 10-15 times per hour whil e awake. -Continued close monitoring with repeat daily CBC, CMP, CRP, LDH, and ferritin. -Orders placed to obtain an ambulatory pulse ox Diabetes mellitus type 2 with hyperglycemia -Hold oral glycemic medications Actos and metformin. Patient placed on Glycemic protocol with NovoLog sliding scale. -Heart healthy carb consistent diet. Hypomagnesemia, resolved -Initial magnesium 1.5. This was replaced with 2 g magnesium sulfate IVPB with repeat magnesium of 2.1. Hyponatremia, improving -Initial sodium 129 with repeat of 134. -Continued gentle hydration with IV fluids. Hypertension -Monitor vital signs and Continue daily medication regimen with Norvasc and lisinopril. Anxiety and depression -Continue daily medication regimen with Zoloft. Chronic back pain with neuropathy -Continue daily medication management with Oxycodone, zanaflex, and Neurontin as prescribed by pain management physician. CODE STATUS: Full code DVT prophylaxis: Lovenox Discussed with: Patient and RN Anticipated discharge date: Clinical course to determine Anticipated discharge place: Home A total of 35 minutes was spent on the care of this complex patient more than 50% of the time was spent in counseling and care coordination. Objective - Vital Signs Vital signs: Vital Signs Temp 98.3 F 02/19/21 05:00 Pulse 79 09/26/20 05:00 Resp 19 09/26/20 05:00 BP 159/83 09/26/20 05:00 Pulse Ox 95 09/26/20 08:49 Intake & Output 09/25/20 09/26/20 09/26/20 18:59 06:59 18:59 Other: # Voids 1 3 - Labs CBC & Chem 7: 09/24/20 22:10 09/25/20 06:20 Labs: Abnormal Lab Results - Last 24 Hours (Table) 09/25/20 09/25/20 09/25/20 Range/Units 06:20 11:43 14:25 Sodium 134 L (135-145) mmol/L Carbon Dioxide 18.2 L (21.6-31.8) mmol/L Anion Gap 15.80 H (4.00-12.00) mmol/L BUN/Creatinine Ratio 25.00 H (12.00-20.00) Ratio Glucose 343 H (70-110) mg/dL POC Glucose (mg/dL) 291 H (75-99) mg/dL Calcium 8.5 L (8.7-10.3) mg/dL Urine Protein Trace H (Negative) Urine Glucose (UA) 4+ H (Negative) Urine Ketones 3+ H (Negative) 09/25/20 09/25/20 09/26/20 Range/Units 16:56 20:44 07:11 Sodium (135-145) mmol/L Carbon Dioxide (21.6-31.8) mmol/L Anion Gap (4.00-12.00) mmol/L BUN/Creatinine Ratio (12.00-20.00) Ratio Glucose (70-110) mg/dL POC Glucose (mg/dL) 319 H 311 H 355 H (75-99) mg/dL Calcium (8.7-10.3) mg/dL Urine Protein (Negative) Urine Glucose (UA) (Negative) Urine Ketones (Negative) Microbiology - Last 24 Hours (Table) 09/24/20 21:55 Blood Culture - Preliminary Blood No Growth after 24 hours 09/24/20 22:10 Blood Culture - Preliminary Blood No Growth after 24 hours
[2020-09-26 12:04] LABS: Glucose,Whole Blood 374 mg/dL (75-99)
[2020-09-26] MEDS: guaiFENesin 600 MG TABLET.ER PO SCH ×2 (12:15→20:55)
[2020-09-26 13:26] LABS: Basophils % (A) 1 %; Eosinophils % (A) 0 %; HCT 36.2 % (34.0-46.0); HGB 12.1 gm/dL (11.4-16.0); Lymphocytes # (A) 0.6 k/uL (1.0-4.8); Lymphocytes % (A) 8 %; MCH 29.5 pg (25.0-35.0); MCHC 33.3 g/dL (31.0-37.0); MCV 88.5 fL (80.0-100.0); Mean Platelet Volume 7.8; Monocytes # (A) 0.3 k/uL (0-1.0); Monocytes % (A) 4 %; Neutrophils # (A) 6.4 k/uL (1.3-7.7); Neutrophils % (A) 87 %; Platelet Count 186 k/uL (150-450); RBC 4.09 m/uL (3.80-5.40); RDW 12.4 % (11.5-15.5); WBC 7.4 k/uL (3.8-10.6)
--- NOTE | 2020-09-26 13:32 | P.PN ---
Subjective Progress Note Date: 09/26/20 Principal diagnosis: CoVID 19 pneumonia This is a 59-year-old white female patient with past medical history of mild intermittent bronchial asthma, diabetes mellitus type 2, hypertension, previous episode of pneumonia, anxiety, depression, obesity, lifetime nonsmoker, who presented to the emergency department on 09/24/2020 with complaints of cough, dyspnea. Her symptoms started about 10 days ago with not feeling well, low- grade fever, diffuse body aches. She does admit to having nausea and diarrhea. She hasn't been able to eat much or drink related to stomach aches, nausea and diarrhea. She had a telemetry health visit with her primary care provider, BEN Jean, and was given an antibiotic, steroids, and an inhaler. Her cough is productive of yellow phlegm. Denied any hemoptysis, denied any chest discomfort. Denied any headaches, denied any lightheadedness, dizziness, no visual disturbances. Chest x-ray showed bilateral interstitial pneumonia. COVID 19 PCR was positive, LDH was 815, CRP was 137, patient was lymphopenic with lymphocyte count of 0.7, the rest of the CBC was within normal limits, d- dimer was 0.55, sodium was 129, BUN is 20, creatinine 0.61, CO2 was 19, possibly lactic acid was 1.1, LFTs were within normal limits, pro-calcitonin level was 0.09. Serum glucose level was 347. Patient is on oral Decadron 6 mg daily, she is on prophylactic dose Lovenox, she is on IV hydration at the 130 ML per hour. T-max is 99.7F over the last 24 hours, room air pulse ox is currently 93%. The patient is seen today 09/26/2020 in follow-up on the regular medical floor. She is currently sitting up in a chair at the bedside. Awake and alert in no acute distress. She is maintaining O2 saturation in the 90s on 2 L/m per nasal cannula. She's been afebrile. Hemodynamically stable. She has a loose nonproductive cough. No fever, chills or night sweats. She is dyspneic on minimal exertion. Less diarrhea. Blood cultures reveal no growth. Blood glucose 355. She remains on vitamin supplements, dexamethasone, Lovenox, Colcrys. Objective - Vital Signs Vital signs: Vital Signs Temp 98.3 F 02/19/21 05:00 Pulse 79 09/26/20 08:00 Resp 19 09/26/20 08:00 BP 159/83 09/26/20 05:00 Pulse Ox 95 09/26/20 08:49 Intake & Output 09/25/20 09/26/20 09/26/20 18:59 06:59 18:59 Other: # Voids 1 3 - Exam GENERAL EXAM: Alert, very pleasant, 59-year-old female patient, on 2 L nasal cannula, with a pulse ox of 95% comfortable in no apparent distress. HEAD: Normocephalic/atraumatic. EYES: Normal reaction of pupils, equal size. Conjunctiva pink, sclera white. NOSE: Clear with pink turbinates. THROAT: No erythema or exudates. NECK: No masses, no JVD, no thyroid enlargement, no adenopathy. CHEST: No chest wall deformity. Symmetrical expansion. LUNGS: Equal air entry with bilateral crackles CVS: Regular rate and rhythm, normal S1 and S2, no gallops, no murmurs, no rubs ABDOMEN: Soft, nontender. No hepatosplenomegaly, normal bowel sounds, no guarding or rigidity. EXTREMITIES: No clubbing, no edema, no cyanosis, 2+ pulses and upper and lower extremities. MUSCULOSKELETAL: Muscle strength and tone normal. SPINE: No scoliosis or deformity SKIN: No rashes CENTRAL NERVOUS SYSTEM: Alert and oriented -3. No focal deficits, tone is normal in all 4 extremities. PSYCHIATRIC: Alert and oriented -3. Appropriate affect. Intact judgment and insight. - Labs CBC & Chem 7: 09/24/20 22:10 09/25/20 06:20 Labs: Abnormal Lab Results - Last 24 Hours (Table) 09/25/20 09/25/20 09/25/20 Range/Units 14:25 16:56 20:44 POC Glucose (mg/dL) 319 H 311 H (75-99) mg/dL Urine Protein Trace H (Negative) Urine Glucose (UA) 4+ H (Negative) Urine Ketones 3+ H (Negative) 09/26/20 09/26/20 Range/Units 07:11 12:02 POC Glucose (mg/dL) 355 H 374 H (75-99) mg/dL Urine Protein (Negative) Urine Glucose (UA) (Negative) Urine Ketones (Negative) Microbiology - Last 24 Hours (Table) 09/24/20 21:55 Blood Culture - Preliminary Blood No Growth after 24 hours 09/24/20 22:10 Blood Culture - Preliminary Blood No Growth after 24 hours Assessment and Plan Assessment: 1 Acute hypoxic respiratory failure, mild at this point, related to acute COVID 19 pneumonia. Onset of symptoms was 10 days prior to her presentation, and patient is out of the therapeutic window for Remdesivir 2 Failure of outpatient treatment, patient was started on azithromycin and prednisone taper for her symptoms of shortness of breath, cough, by her PCP 3 Increased inflammatory markers related to acute COVID 19 pneumonia 4 Hyponatremia, related to hypovolemia, patient has been having symptoms of nausea and diarrhea, decreased oral intake on outpatient basis 5 Mild intermittent bronchial asthma 6 Never smoker 7 Hypertension 8 Diabetes mellitus type 2 9 Anxiety/depression Plan: Patient was seen and evaluated by Dr. Gunter We will continue the current treatment plan Follow-up chest x-ray and labs in a.m. We'll continue to follow I, the cosigning physician, performed a history & physical examination of the patient. Lungs sounds with bibasilar crackles. Maintaining good O2 saturations in the 90s on 2 L/m per nasal cannula. I discussed the assessment and plan of care with my nurse practitioner, Zarina Hu. I attest to the above note as dictated by her.
[2020-09-26 13:38] LABS: ALT 23 U/L (4-34); AST 30 U/L (14-36); African American GFR (CKD) >90 (>60 ml/min/1.73 sqM); Albumin 3.3 g/dL (3.5-5.0); Alkaline Phosphatase 61 U/L (38-126); Anion Gap 9 mmol/L; Blood Urea Nitrogen 17 mg/dL (7-17); Calcium 8.3 mg/dL (8.4-10.2); Carbon Dioxide 19 mmol/L (22-30); Chloride 102 mmol/L (98-107); Globulin 3.3 g/dL; Glucose 425 mg/dL (74-99); Magnesium 1.7 mg/dL (1.6-2.3); Non-African American GFR(CKD) >90 (>60 ml/min/1.73 sqM); Potassium 4.4 mmol/L (3.5-5.1); Sodium 130 mmol/L (137-145); Total Bilirubin 0.7 mg/dL (0.2-1.3); Total Protein 6.6 g/dL (6.3-8.2)
[2020-09-26 13:49] LABS: C Reactive Protein 163.2 mg/L (<10.0)
[2020-09-26 17:14] LABS: Glucose,Whole Blood 370 mg/dL (75-99)
[2020-09-26 20:36] LABS: Glucose,Whole Blood 252 mg/dL (75-99)
[2020-09-26] MEDS: MELATONIN 5 MG TABLET PO SCH (20:54)
[2020-09-26] MEDS: INSULIN DETEMIR (LEVEMIR) 100 UNIT/ML SYR SQ SCH (20:55)
[2020-09-27] MEDS: IBUPROFEN 800 MG TAB PO PRN (02:12)
[2020-09-27] MEDS: SODIUM CHLORIDE 0.9% 1,000 ML IV SCH (04:15)
--- NOTE | 2020-09-27 06:49 | XR ---
EXAMINATION TYPE: XR chest 1V portable DATE OF EXAM: 09/27/2020 HISTORY: Shortness of breath. COMPARISON: 09/24/2020 TECHNIQUE: Single view of the chest is submitted. FINDINGS: Demonstrated are scattered senescent parenchymal change. Patchy right perihilar and right basilar infiltrate as well as there is patchy infiltrate the left pe rihilar region compatible with pneumonia. The heart is stable. Hilar and mediastinal structures are within normal limits. Degenerative changes are seen of the dorsal spine. IMPRESSION: 1. Patchy right perihilar and right basilar infiltrate as well as there is patchy infiltrate the lef t perihilar region compatible with pneumonia.
[2020-09-27 06:53] LABS: Glucose,Whole Blood 252 mg/dL (75-99)
[2020-09-27] MEDS: ALBUTEROL HFA INHALER INHALATION PRN ×2 (08:16→11:54)
[2020-09-27] MEDS: INSULIN ASPART (NovoLOG) 100 UNIT/ML VIAL SQ SCH ×7 (08:32→20:27)
[2020-09-27] MEDS: dexAMETHasone 2 MG TAB PO SCH (08:33)
[2020-09-27] MEDS: GABAPENTIN 300 MG CAP PO SCH ×3 (08:33→20:27)
[2020-09-27] MEDS: ASCORBIC ACID 500 MG TAB PO SCH (08:33)
[2020-09-27] MEDS: SERTRALINE 100 MG TAB PO SCH (08:33)
[2020-09-27] MEDS: CHOLECALCIFEROL 25 MCG (1000 IU) TABLET PO SCH (08:33)
[2020-09-27] MEDS: ZINC SULFATE 220 MG CAP PO SCH (08:34)
[2020-09-27] MEDS: guaiFENesin 600 MG TABLET.ER PO SCH ×2 (08:34→20:27)
[2020-09-27] MEDS: ENOXAPARIN 40 MG/0.4 ML SYRINGE SQ SCH (08:34)
[2020-09-27] MEDS: amLODIPine 5 MG TAB PO SCH (08:34)
[2020-09-27] MEDS: lisinopriL 20 MG TAB PO SCH (08:34)
[2020-09-27] MEDS: DICYCLOMINE 10 MG CAP PO SCH (08:34)
[2020-09-27] MEDS: MONTELUKAST 10 MG TAB PO SCH (08:34)
[2020-09-27 08:43] LABS: Basophils # (A) 0.1 k/uL (0-0.2); Basophils % (A) 1 %; Eosinophils # (A) 0.2 k/uL (0-0.7); Eosinophils % (A) 2 %; HCT 38.1 % (34.0-46.0); HGB 12.9 gm/dL (11.4-16.0); Lymphocytes # (A) 1.9 k/uL (1.0-4.8); Lymphocytes % (A) 20 %; MCH 29.7 pg (25.0-35.0); MCHC 33.8 g/dL (31.0-37.0); MCV 87.8 fL (80.0-100.0); Mean Platelet Volume 7.8; Monocytes # (A) 0.3 k/uL (0-1.0); Monocytes % (A) 4 %; Neutrophils # (A) 6.9 k/uL (1.3-7.7); Neutrophils % (A) 72 %; Platelet Count 243 k/uL (150-450); RBC 4.33 m/uL (3.80-5.40); RDW 12.5 % (11.5-15.5); WBC 9.5 k/uL (3.8-10.6)
[2020-09-27] MEDS: COLCHICINE 0.6 MG EACH PO SCH ×2 (08:46→20:27)
[2020-09-27] MEDS: BENZONATATE 100 MG CAP PO PRN ×3 (08:46→21:05)
[2020-09-27 08:55] LABS: ALT 23 U/L (4-34); AST 29 U/L (14-36); African American GFR (CKD) >90 (>60 ml/min/1.73 sqM); Albumin 3.4 g/dL (3.5-5.0); Alkaline Phosphatase 76 U/L (38-126); Anion Gap 9 mmol/L; Blood Urea Nitrogen 19 mg/dL (7-17); Calcium 8.7 mg/dL (8.4-10.2); Carbon Dioxide 22 mmol/L (22-30); Chloride 105 mmol/L (98-107); Globulin 3.4 g/dL; Glucose 257 mg/dL (74-99); LDH 1058 U/L (313-618); Non-African American GFR(CKD) >90 (>60 ml/min/1.73 sqM); Potassium 3.9 mmol/L (3.5-5.1); Sodium 136 mmol/L (137-145); Total Bilirubin 0.8 mg/dL (0.2-1.3); Total Protein 6.8 g/dL (6.3-8.2)
[2020-09-27 09:08] LABS: C Reactive Protein 179.2 mg/L (<10.0)
--- NOTE | 2020-09-27 09:27 | P.PN ---
<Laurent Shankar - Last Filed: 09/27/20 09:05> Subjective Progress Note Date: 09/27/20 Principal diagnosis: COVID Pneumonia Hospital course: Patient is a 59-year-old female with a past medical history including hypertension, diabetes mellitus type 2, neuropathy, chronic back pain, mild intermittent bronchial asthma, anxiety, depression, and obesity. She presented to [facility] on 09/24/20 with a chief complaint of generalized fatigue, weakness, productive cough, and shortness of breath beginning approximately 10 days prior to arrival accompanied by a low-grade fever, productive cough of yellow phlegm, body aches, chills, decreased appetite, nausea, vomiting, diarrhea, and diaphoresis. Patient was found to be positive for Covid 19 virus infection per PCR and have mild pulmonary bilateral interstitial pneumonia per chest x-ray findings. She had an elevated CRP of 137.0, LDH of 815, hypomagnesemia with a magnesium of 1.5, and hyponatremia with sodium of 129. Patient was admitted under our services for treatment of Covid pneumonia requiring supplemental oxygenation and treatment with steroids. CBC, CMP, magnesium, and CRP ordered for draw and pending results at this time. Physical exam: Patient was seen and fully evaluated at the bedside this morning. Patient reports feeling worse this morning than she did yesterday. Patient sitting on edge of bed, states she was unable to eat her breakfast this morning because she simply can't stop coughing. Patient was on room air, pulse ox was obtained resulting at 83%. Oxygen was slowly titrated up to 3 L improving patient's oxygenation to 92%. Her respirations are even, regular, and unlabored. Patient does have persistent dry cough. Patient was reminded that she has Tessalon Perles for uncontrolled cough in addition to the Mucinex she has been getting. Patient denies having any headache, lightheadedness, dizziness, chest pain, palpitations, abdominal pain, nausea, vomiting, or experiencing any pain/swelling/weakness in extremities. Patient was noted to have low-grade temp of 100.0F throughout the night, otherwise vital signs stable. IV fluids stopped at this time and we will repeat a pro-calcitonin. CBC was unremarkable and BMP, CRP, and LDH are still pending. General: non toxic, no distress, appears at stated age Derm: warm, dry Head: atraumatic, normocephalic, symmetric Eyes: EOMI, no lid lag, anicteric sclera Mouth: no lip lesion, mucus membranes moist Cardiovascular: Regular rate and rhythm, no murmur, positive posterior tibial pulses bilaterally, cap refill less than 2 seconds Lungs: Respirations even, regular, and unlabored on 3 L O2 via nasal cannula, patient was hypoxic on room air with SpO2 of 83% requiring being placed back on oxygen supplementation. Lungs with soft crackles at bilateral bases posteriorly, no coarse rhonchi, rales, or expiratory wheezes present. Abdominal: soft, nontender to palpation, no guarding, no appreciable organom egaly Ext: no gross muscle atrophy, no edema, no contractures Neuro: GCS 15. Speech clear. CN II-XI grossly intact, no focal neuro deficits Psych: Alert, oriented, appropriate affect Assessment Plan of Care: COVID Pneumonia -POSITIVE for COVID 19 virus infection per PCR on 09/24/20. Reports symptoms began 10 days ago. -Chest x-ray revealing mild pulmonary bilateral interstitial pneumonia and repeat CXR completed 09/27/20 revealing patchy right perihilar and right basilar infiltrate as well as patchy infiltrate in the left perihilar region compatible with pneumonia. -Decadron 6 mg daily (day 3 of steroids) -IV fluids stopped today. -Continue Vitamin C, vitamin D, zinc, and melatonin. -Mucinex 600 mg BID and Tessalon Perles as needed for cough -Continue to titrate oxygen to maintain SpO2 equal to or greater than 92% begin weaning from oxygen as soon as patient is able. Patient requiring 3 L at this time. SpO2 on room air this morning was 84%. 3 L O2 patient satting 91%. -Telemetry monitoring. -Continuous Pulse-oximetry -MDIs as needed for SOB and/or wheezing -Incentive Spirometry, patient again encouraged to use 10-15 times per hour while awake. -Continued close monitoring with repeat daily CBC, CMP, CRP, LDH, and ferritin. Diabetes mellitus type 2 with hyperglycemia -Hold oral glycemic medications Actos and metformin. Patient placed on Glycemic protocol with NovoLog sliding scale. -Current Hyperglycemia likely secondary to steroid use with recent A1c 8.5 on 05/13/20. -Added Levemir 12 units nightly. -Heart healthy carb consistent diet. Hypomagnesemia, resolved Hyponatremia resolved, patient now having only pseudohyponatremia -Initial sodium of 129 with corrected sodium of 133 and currently Sodium 130 with corrected sodium of 135. -Fluids stopped. Hypertension -Monitor vital signs and Continue daily medication regimen with Norvasc and lisinopril. Anxiety and depression -Continue daily medication regimen with Zoloft. Chronic back pain with neuropathy -Continue daily medication management with Oxycodone, zanaflex, and Neurontin as prescribed by pain management physician. CODE STATUS: Full code DVT prophylaxis: Lovenox Discussed with: Patient and RN Anticipated discharge date: Clinical course to determine Anticipated discharge place: Home A total of 35 minutes was spent on the care of this complex patient more than 50% of the time was spent in counseling and care coordination. Objective - Vital Signs Vital signs: Vital Signs Temp 98.2 F 09/27/20 05:29 Pulse 59 L 09/27/20 05:29 Resp 18 09/27/20 08:46 BP 123/72 09/27/20 05:29 Pulse Ox 90 L 09/27/20 08:46 Intake & Output 09/26/20 09/27/20 09/27/20 18:59 06:59 18:59 Other: Voiding Method Toilet # Voids 5 1 # Bowel Movements 1 - Labs CBC & Chem 7: 09/27/20 08:23 09/26/20 13:02 Labs: Abnormal Lab Results - Last 24 Hours (Table) 09/26/20 09/26/20 09/26/20 Range/Units 12:02 13:02 13:02 Lymphocytes # 0.6 L (1.0-4.8) k/uL Sodium 130 L (137-145) mmol/L Carbon Dioxide 19 L (22-30) mmol/L Glucose 425 H (74-99) mg/dL POC Glucose (mg/dL) 374 H (75-99) mg/dL Calcium 8.3 L (8.4-10.2) mg/dL C-Reactive Protein 163.2 H (<10.0) mg/L Albumin 3.3 L (3.5-5.0) g/dL 09/26/20 09/26/20 09/27/20 Range/Units 17:12 20:31 06:40 Lymphocytes # (1.0-4.8) k/uL Sodium (137-145) mmol/L Carbon Dioxide (22-30) mmol/L Glucose (74-99) mg/dL POC Glucose (mg/dL) 370 H 252 H 252 H (75-99) mg/dL Calcium (8.4-10.2) mg/dL C-Reactive Protein (<10.0) mg/L Albumin (3.5-5.0) g/dL Microbiology - Last 24 Hours (Table) 09/24/20 21:55 Blood Culture - Preliminary Blood No Growth after 48 hours 09/24/20 22:10 Blood Culture - Preliminary Blood No Growth after 48 hours <Radha Herrera - Last Filed: 09/27/20 11:52> Subjective Patient seen and examined independently. Patient was also seen by Laurent Shankar NP and case was discussed. I am in agreement with subjective, physical exam, assessment and plan as written above and amended below. Patient sleeping and wants to be left alone General: ill appearing, no distress, appears at stated age Derm: warm, dry Head: atraumatic, normocephalic, symmetric Eyes: EOMI, no lid lag, anicteric sclera Mouth: no lip lesion, mucus membranes moist Lungs: chest rise equal bilateral, no accessory muscle use Patient with increasing oxygen requirements overnight. Her LDH and CRP continue to elevate. Known diagnosis of Covid. Agree with stopping IV fluids and rechecking pro-calcitonin. Patient also noted to have temperature of 100 which is the highest reported to date. Blood sugars are improving with Levemir dosing. Likely will need increased oral agents for diabetes on discharge as her last A1c was 8.5. Stop bentyl continue to monitor stool output. Not a candidate for remdisivir due to length of symptoms. Objective - Vital Signs Vital signs: Vital Signs Temp 97.9 F 09/27/20 10:09 Pulse 62 09/27/20 10:09 Resp 18 09/27/20 10:09 BP 135/70 09/27/20 10:09 Pulse Ox 97 09/27/20 10:09 Intake & Output 09/26/20 09/27/20 09/27/20 18:59 06:59 18:59 Other: Voiding Method Toilet # Voids 5 1 # Bowel Movements 1 - Labs CBC & Chem 7: 09/27/20 08:23 09/27/20 08:23 Labs: Abnormal Lab Results - Last 24 Hours (Table) 09/26/20 09/26/20 09/26/20 Range/Units 12:02 13:02 13:02 Lymphocytes # 0.6 L (1.0-4.8) k/uL Sodium 130 L (137-145) mmol/L Carbon Dioxide 19 L (22-30) mmol/L BUN (7-17) mg/dL Glucose 425 H (74-99) mg/dL POC Glucose (mg/dL) 374 H (75-99) mg/dL Calcium 8.3 L (8.4-10.2) mg/dL Lactate Dehydrogenase (313-618) U/L C-Reactive Protein 163.2 H (<10.0) mg/L Albumin 3.3 L (3.5-5.0) g/dL 09/26/20 09/26/20 09/27/20 Range/Units 17:12 20:31 06:40 Lymphocytes # (1.0-4.8) k/uL Sodium (137-145) mmol/L Carbon Dioxide (22-30) mmol/L BUN (7-17) mg/dL Glucose (74-99) mg/dL POC Glucose (mg/dL) 370 H 252 H 252 H (75-99) mg/dL Calcium (8.4-10.2) mg/dL Lactate Dehydrogenase (313-618) U/L C-Reactive Protein (<10.0) mg/L Albumin (3.5-5.0) g/dL 09/27/20 09/27/20 Range/Units 08:23 11:06 Lymphocytes # (1.0-4.8) k/uL Sodium 136 L (137-145) mmol/L Carbon Dioxide (22-30) mmol/L BUN 19 H (7-17) mg/dL Glucose 257 H (74-99) mg/dL POC Glucose (mg/dL) 215 H (75-99) mg/dL Calcium (8.4-10.2) mg/dL Lactate Dehydrogenase 1058 H (313-618) U/L C-Reactive Protein 179.2 H (<10.0) mg/L Albumin 3.4 L (3.5-5.0) g/dL Microbiology - Last 24 Hours (Table) 09/24/20 21:55 Blood Culture - Preliminary Blood No Growth after 48 hours 09/24/20 22:10 Blood Culture - Preliminary Blood No Growth after 48 hours
[2020-09-27 11:10] LABS: Glucose,Whole Blood 215 mg/dL (75-99)
--- NOTE | 2020-09-27 12:19 | P.PN ---
Subjective Progress Note Date: 09/27/20 Principal diagnosis: CoVID 19 pneumonia This is a 59-year-old white female patient with past medical history of mild intermittent bronchial asthma, diabetes mellitus type 2, hypertension, previous episode of pneumonia, anxiety, depression, obesity, lifetime nonsmoker, who presented to the emergency department on 09/24/2020 with complaints of cough, dyspnea. Her symptoms started about 10 days ago with not feeling well, low- grade fever, diffuse body aches. She does admit to having nausea and diarrhea. She hasn't been able to eat much or drink related to stomach aches, nausea and diarrhea. She had a telemetry health visit with her primary care provider, BEN Jean, and was given an antibiotic, steroids, and an inhaler. Her cough is productive of yellow phlegm. Denied any hemoptysis, denied any chest discomfort. Denied any headaches, denied any lightheadedness, dizziness, no visual disturbances. Chest x-ray showed bilateral interstitial pneumonia. COVID 19 PCR was positive, LDH was 815, CRP was 137, patient was lymphopenic with lymphocyte count of 0.7, the rest of the CBC was within normal limits, d- dimer was 0.55, sodium was 129, BUN is 20, creatinine 0.61, CO2 was 19, possibly lactic acid was 1.1, LFTs were within normal limits, pro-calcitonin level was 0.09. Serum glucose level was 347. Patient is on oral Decadron 6 mg daily, she is on prophylactic dose Lovenox, she is on IV hydration at the 130 ML per hour. T-max is 99.7F over the last 24 hours, room air pulse ox is currently 93%. The patient is seen today 09/26/2020 in follow-up on the regular medical floor. She is currently sitting up in a chair at the bedside. Awake and alert in no acute distress. She is maintaining O2 saturation in the 90s on 2 L/m per nasal cannula. She's been afebrile. Hemodynamically stable. She has a loose nonproductive cough. No fever, chills or night sweats. She is dyspneic on minimal exertion. Less diarrhea. Blood cultures reveal no growth. Blood glucose 355. She remains on vitamin supplements, dexamethasone, Lovenox, Colcrys. The patient is seen today 09/27/2020 in follow-up on the regular medical floor. She is currently sitting up in chair at the bedside. Awake and alert in no acute distress. She is maintaining O2 saturation in the 90s on 3 L/m per nasal cannula. She was 83% on room air earlier this morning. Chest x-ray reveals patchy right perihilar and right basilar infiltrate as well as patchy infiltrate in the left perihilar region. She's afebrile. Hemodynamically stable. Blood cultures reveal no growth. White count 9.5. Hemoglobin 12.9. Sodium 136. Potassium 3.9. Creatinine 0.65. LDH 1058, C-reactive protein 179. She remains on vitamin supplements, dexamethasone, Lovenox, Colcrys. Objective - Vital Signs Vital signs: Vital Signs Temp 97.9 F 09/27/20 10:09 Pulse 62 09/27/20 10:09 Resp 18 09/27/20 10:09 BP 135/70 09/27/20 10:09 Pulse Ox 97 09/27/20 10:09 Intake & Output 09/26/20 09/27/20 09/27/20 18:59 06:59 18:59 Other: Voiding Method Toilet # Voids 5 1 # Bowel Movements 1 - Exam GENERAL EXAM: Alert, very pleasant, 59-year-old female patient, on 3 L nasal cannula, with a pulse ox of 97% comfortable in no apparent distress. HEAD: Normocephalic/atraumatic. EYES: Normal reaction of pupils, equal size. Conjunctiva pink, sclera white. NOSE: Clear with pink turbinates. THROAT: No erythema or exudates. NECK: No masses, no JVD, no thyroid enlargement, no adenopathy. CHEST: No chest wall deformity. Symmetrical expansion. LUNGS: Equal air entry with bilateral crackles CVS: Regular rate and rhythm, normal S1 and S2, no gallops, no murmurs, no rubs ABDOMEN: Soft, nontender. No hepatosplenomegaly, normal bowel sounds, no guardi ng or rigidity. EXTREMITIES: No clubbing, no edema, no cyanosis, 2+ pulses and upper and lower extremities. MUSCULOSKELETAL: Muscle strength and tone normal. SPINE: No scoliosis or deformity SKIN: No rashes CENTRAL NERVOUS SYSTEM: Alert and oriented -3. No focal deficits, tone is normal in all 4 extremities. PSYCHIATRIC: Alert and oriented -3. Appropriate affect. Intact judgment and insight. - Labs CBC & Chem 7: 09/27/20 08:23 09/27/20 08:23 Labs: Abnormal Lab Results - Last 24 Hours (Table) 09/26/20 09/26/20 09/26/20 Range/Units 13:02 13:02 17:12 Lymphocytes # 0.6 L (1.0-4.8) k/uL Sodium 130 L (137-145) mmol/L Carbon Dioxide 19 L (22-30) mmol/L BUN (7-17) mg/dL Glucose 425 H (74-99) mg/dL POC Glucose (mg/dL) 370 H (75-99) mg/dL Calcium 8.3 L (8.4-10.2) mg/dL Lactate Dehydrogenase (313-618) U/L C-Reactive Protein 163.2 H (<10.0) mg/L Albumin 3.3 L (3.5-5.0) g/dL 09/26/20 09/27/20 09/27/20 Range/Units 20:31 06:40 08:23 Lymphocytes # (1.0-4.8) k/uL Sodium 136 L (137-145) mmol/L Carbon Dioxide (22-30) mmol/L BUN 19 H (7-17) mg/dL Glucose 257 H (74-99) mg/dL POC Glucose (mg/dL) 252 H 252 H (75-99) mg/dL Calcium (8.4-10.2) mg/dL Lactate Dehydrogenase 1058 H (313-618) U/L C-Reactive Protein 179.2 H (<10.0) mg/L Albumin 3.4 L (3.5-5.0) g/dL 09/27/20 Range/Units 11:06 Lymphocytes # (1.0-4.8) k/uL Sodium (137-145) mmol/L Carbon Dioxide (22-30) mmol/L BUN (7-17) mg/dL Glucose (74-99) mg/dL POC Glucose (mg/dL) 215 H (75-99) mg/dL Calcium (8.4-10.2) mg/dL Lactate Dehydrogenase (313-618) U/L C-Reactive Protein (<10.0) mg/L Albumin (3.5-5.0) g/dL Microbiology - Last 24 Hours (Table) 09/24/20 21:55 Blood Culture - Preliminary Blood No Growth after 48 hours 09/24/20 22:10 Blood Culture - Preliminary Blood No Growth after 48 hours Assessment and Plan Assessment: 1 Acute hypoxic respiratory failure, mild at this point, related to acute COVID 19 pneumonia. Onset of symptoms was 10 days prior to her presentation, and patient is out of the therapeutic window for Remdesivir 2 Failure of outpatient treatment, patient was started on azithromycin and prednisone taper for her symptoms of shortness of breath, cough, by her PCP 3 Increased inflammatory markers related to acute COVID 19 pneumonia 4 Hyponatremia, related to hypovolemia, patient has been having symptoms of nausea and diarrhea, decreased oral intake on outpatient basis 5 Mild intermittent bronchial asthma 6 Never smoker 7 Hypertension 8 Diabetes mellitus type 2 9 Anxiety/depression Plan: Patient was seen and evaluated by Dr. Gunter Chest x-ray and labs reviewed We will continue the current treatment plan Follow-up labs in a.m. We'll continue to follow I, the cosigning physician, performed a history & physical examination of the patient. Lungs sounds with bibasilar crackles. Maintaining good O2 saturations in the 90s on 2 L/m per nasal cannula. I discussed the assessment and plan of care with my nurse practitioner, Zarina Hu. I attest to the above note as dictated by her.
[2020-09-27 13:22] LABS: Appearance,Urine Clear (Clear); Bacteria,Urine Rare /hpf; Bilirubin,Urine Negative (Negative); Blood,Urine Small (Negative); Color,Urine Yellow; Glucose,Urine (UA) 4+ (Negative); Ketones,Urine Negative (Negative); Leukocyte Esterase,Urine Negative (Negative); Mucus,Urine Rare /hpf; Nitrite,Urine Negative (Negative); Protein,Urine 1+ (Negative); RBC,Urine 12 /hpf (0-5); Specific Gravity,Urine 1.026 (1.001-1.035); Squamous Epithelial Cell,Urine 3 /hpf (0-4); Urobilinogen,Urine <2.0 mg/dL (<2.0); WBC,Urine 1 /hpf (0-5)
[2020-09-27 17:07] LABS: Glucose,Whole Blood 334 mg/dL (75-99)
[2020-09-27] MEDS ORDERED: FUROSEMIDE 10 MG/ML 4 ML VIAL IV STA (18:51)
[2020-09-27 20:15] LABS: Glucose,Whole Blood 257 mg/dL (75-99)
[2020-09-27] MEDS: INSULIN DETEMIR (LEVEMIR) 100 UNIT/ML SYR SQ SCH (20:27)
[2020-09-27] MEDS: MELATONIN 5 MG TABLET PO SCH (20:27)
[2020-09-28 06:56] LABS: Glucose,Whole Blood 192 mg/dL (75-99)
[2020-09-28] MEDS: INSULIN ASPART (NovoLOG) 100 UNIT/ML VIAL SQ SCH ×7 (07:44→22:32)
[2020-09-28] MEDS: guaiFENesin 600 MG TABLET.ER PO SCH ×2 (07:45→22:31)
[2020-09-28] MEDS: MONTELUKAST 10 MG TAB PO SCH (07:45)
[2020-09-28] MEDS: dexAMETHasone 2 MG TAB PO SCH (07:45)
[2020-09-28] MEDS: ENOXAPARIN 40 MG/0.4 ML SYRINGE SQ SCH (07:45)
[2020-09-28] MEDS: ASCORBIC ACID 500 MG TAB PO SCH (07:46)
[2020-09-28] MEDS: BENZONATATE 100 MG CAP PO PRN ×2 (07:46→22:37)
[2020-09-28] MEDS: ZINC SULFATE 220 MG CAP PO SCH (07:46)
[2020-09-28] MEDS: GABAPENTIN 300 MG CAP PO SCH ×3 (07:46→22:31)
[2020-09-28] MEDS: lisinopriL 20 MG TAB PO SCH (07:46)
[2020-09-28] MEDS: amLODIPine 10 MG TAB PO SCH (07:46)
[2020-09-28] MEDS: SERTRALINE 100 MG TAB PO SCH (07:46)
[2020-09-28] MEDS: CHOLECALCIFEROL 25 MCG (1000 IU) TABLET PO SCH (07:46)
[2020-09-28] MEDS: COLCHICINE 0.6 MG EACH PO SCH ×2 (07:46→22:31)
[2020-09-28] MEDS: ALBUTEROL HFA INHALER INHALATION PRN ×2 (08:29→12:34)
[2020-09-28 09:10] LABS: HCT 32.4 % (37.2-46.3); HGB 11.1 g/dL (12.0-15.0); MCH 29.2 pg (27.0-32.0); MCHC 34.3 g/dL (32.0-37.0); MCV 85.3 fL (80.0-97.0); Platelet Count 241 X 10*3/uL (140-440); RDW 12.1 % (11.5-14.5)
[2020-09-28 09:48] LABS: Ferritin 270.7 ng/mL (10.0-291.0)
[2020-09-28 11:24] LABS: African American GFR (CKD) 111.5 (60.0-200.0); Anion Gap 10.2 mmol/L (4.00-12.00); BUN/Creat Ratio 27.14 Ratio (12.00-20.00); C Reactive Protein 13.8 mg/dL (0.0-0.8); Calcium 8.5 mg/dL (8.7-10.3); Carbon Dioxide 23.8 mmol/L (21.6-31.8); Non-African American GFR(CKD) 96.2 (60.0-200.0); Potassium 3.4 mmol/L (3.5-5.5)
[2020-09-28 11:28] LABS: Glucose,Whole Blood 252 mg/dL (75-99)
--- NOTE | 2020-09-28 11:54 | P.PN ---
Subjective Progress Note Date: 09/28/20 This is a 59-year-old white female patient with past medical history of mild intermittent bronchial asthma, diabetes mellitus type 2, hypertension, previous episode of pneumonia, anxiety, depression, obesity, lifetime nonsmoker, who presented to the emergency department on 09/24/2020 with complaints of cough, dyspnea. Her symptoms started about 10 days ago with not feeling well, low- grade fever, diffuse body aches. She does admit to having nausea and diarrhea. She hasn't been able to eat much or drink related to stomach aches, nausea and diarrhea. She had a telemetry health visit with her primary care provider, BEN Jean, and was given an antibiotic, steroids, and an inhaler. H er cough is productive of yellow phlegm. Denied any hemoptysis, denied any chest discomfort. Denied any headaches, denied any lightheadedness, dizziness, no visual disturbances. Chest x-ray showed bilateral interstitial pneumonia. COVID 19 PCR was positive, LDH was 815, CRP was 137, patient was lymphopenic with lymphocyte count of 0.7, the rest of the CBC was within normal limits, d- dimer was 0.55, sodium was 129, BUN is 20, creatinine 0.61, CO2 was 19, possibly lactic acid was 1.1, LFTs were within normal limits, pro-calcitonin level was 0.09. Serum glucose level was 347. Patient is on oral Decadron 6 mg daily, she is on prophylactic dose Lovenox, she is on IV hydration at the 130 ML per hour. T-max is 99.7F over the last 24 hours, room air pulse ox is currently 93%. The patient is seen today 09/26/2020 in follow-up on the regular medical floor. She is currently sitting up in a chair at the bedside. Awake and alert in no acute distress. She is maintaining O2 saturation in the 90s on 2 L/m per nasal cannula. She's been afebrile. Hemodynamically stable. She has a loose n onproductive cough. No fever, chills or night sweats. She is dyspneic on minimal exertion. Less diarrhea. Blood cultures reveal no growth. Blood glucose 355. She remains on vitamin supplements, dexamethasone, Lovenox, Colcrys. The patient is seen today 09/27/2020 in follow-up on the regular medical floor. She is currently sitting up in chair at the bedside. Awake and alert in no acute distress. She is maintaining O2 saturation in the 90s on 3 L/m per nasal cannula. She was 83% on room air earlier this morning. Chest x-ray reveals patchy right perihilar and right basilar infiltrate as well as patchy infiltrate in the left perihilar region. She's afebrile. Hemodynamically stable. Blood cultures reveal no growth. White count 9.5. Hemoglobin 12.9. Sodium 136. Potassium 3.9. Creatinine 0.65. LDH 1058, C-reactive protein 179. She remains on vitamin supplements, dexamethasone, Lovenox, Colcrys. On today's evaluation of 09/28/2020, complains and the patient remains on oxygen at 2 L per minute nasal cannula. Note that the patient is being treated for "with activity related pneumonia. She is currently on Decadron and she is also on colchicine. The inflammatory markers are improving. The CRP is down to 13 and a LDH is down to 383. Her chest x-ray from yesterday shows patchy right perihilar and right basilar infiltrate as well as a patchy infiltrate in the left perihilar region compatible with COVID related pneumonia. No altered mentation. No nausea. No vomiting. No diarrhea. No other complaints otherwise. She continues to have a cough that sometimes congested. No chest pain. She is having still shortness of breath with limited amount of activity. Objective - Vital Signs Vital signs: Vital Signs Temp 98.6 F 09/28/20 09:49 Pulse 55 L 09/28/20 09:49 Resp 18 09/28/20 09:49 BP 110/66 09/28/20 09:49 Pulse Ox 94 L 09/28/20 09:49 Intake & Output 09/27/20 09/28/20 09/28/20 18:59 06:59 18:59 Other: Voiding Method Toilet Toilet # Voids 3 2 # Bowel Movements 1 - Exam GENERAL EXAM: Alert, very pleasant, 59-year-old female patient, on 2-3 L nasal cannula, with a pulse ox of 97% comfortable in no apparent distress. HEAD: Normocephalic/atraumatic. EYES: Normal reaction of pupils, equal size. Conjunctiva pink, sclera white. NOSE: Clear with pink turbinates. THROAT: No erythema or exudates. NECK: No masses, no JVD, no thyroid enlargement, no adenopathy. CHEST: No chest wall deformity. Symmetrical expansion. LUNGS: Equal air entry with bilateral crackles CVS: Regular rate and rhythm, normal S1 and S2, no gallops, no murmurs, no rubs ABDOMEN: Soft, nontender. No hepatosplenomegaly, normal bowel sounds, no guarding or rigidity. EXTREMITIES: No clubbing, no edema, no cyanosis, 2+ pulses and upper and lower extremities. MUSCULOSKELETAL: Muscle strength and tone normal. SPINE: No scoliosis or deformity SKIN: No rashes CENTRAL NERVOUS SYSTEM: Alert and oriented -3. No focal deficits, tone is normal in all 4 extremities. PSYCHIATRIC: Alert and oriented -3. Appropriate affect. Intact judgment and insight. - Labs CBC & Chem 7: 09/28/20 05:39 09/28/20 05:39 Labs: Abnormal Lab Results - Last 24 Hours (Table) 09/27/20 09/27/20 09/27/20 Range/Units 13:00 16:59 20:12 RBC (4.10-5.20) X 10*6/uL Hgb (12.0-15.0) g/dL Hct (37.2-46.3) % D-Dimer (<0.60) mg/L FEU Potassium (3.5-5.5) mmol/L BUN/Creatinine Ratio (12.00-20.00) Ratio Glucose (70-110) mg/dL POC Glucose (mg/dL) 334 H 257 H (75-99) mg/dL Calcium (8.7-10.3) mg/dL Lactate Dehydrogenase (120-246) U/L C-Reactive Protein (0.0-0.8) mg/dL Urine Protein 1+ H (Negative) Urine Glucose (UA) 4+ H (Negative) Urine Blood Small H (Negative) Urine RBC 12 H (0-5) /hpf Urine Bacteria Rare H (None) /hpf Urine Mucus Rare H (None) /hpf 09/28/20 09/28/20 09/28/20 Range/Units 05:39 05:39 05:39 RBC 3.80 L (4.10-5.20) X 10*6/uL Hgb 11.1 L (12.0-15.0) g/dL Hct 32.4 L (37.2-46.3) % D-Dimer 1.15 H (<0.60) mg/L FEU Potassium 3.4 L (3.5-5.5) mmol/L BUN/Creatinine Ratio 27.14 H (12.00-20.00) Ratio Glucose 179 H (70-110) mg/dL POC Glucose (mg/dL) (75-99) mg/dL Calcium 8.5 L (8.7-10.3) mg/dL Lactate Dehydrogenase 383 H (120-246) U/L C-Reactive Protein 13.8 H (0.0-0.8) mg/dL Urine Protein (Negative) Urine Glucose (UA) (Negative) Urine Blood (Negative) Urine RBC (0-5) /hpf Urine Bacteria (None) /hpf Urine Mucus (None) /hpf 09/28/20 09/28/20 Range/Units 06:54 11:24 RBC (4.10-5.20) X 10*6/uL Hgb (12.0-15.0) g/dL Hct (37.2-46.3) % D-Dimer (<0.60) mg/L FEU Potassium (3.5-5.5) mmol/L BUN/Creatinine Ratio (12.00-20.00) Ratio Glucose (70-110) mg/dL POC Glucose (mg/dL) 192 H 252 H (75-99) mg/dL Calcium (8.7-10.3) mg/dL Lactate Dehydrogenase (120-246) U/L C-Reactive Protein (0.0-0.8) mg/dL Urine Protein (Negative) Urine Glucose (UA) (Negative) Urine Blood (Negative) Urine RBC (0-5) /hpf Urine Bacteria (None) /hpf Urine Mucus (None) /hpf Microbiology - Last 24 Hours (Table) 09/24/20 21:55 Blood Culture - Preliminary Blood No Growth after 72 hours 09/24/20 22:10 Blood Culture - Preliminary Blood No Growth after 72 hours Assessment and Plan Plan: 1 Acute hypoxic respiratory failure, related to acute COVID 19 pneumonia. Onset of symptoms was 10 days prior to her presentation, and patient is out of t he therapeutic window for Remdesivir convalescent plasma. She is currently on Decadron. She is on oxygen between 2 and 3 L per minute nasal cannula. May symptoms remain cough and shortness of breath. 2 Failure of outpatient treatment, patient was started on azithromycin and prednisone taper for her symptoms of shortness of breath, cough, by her PCP 3 Increased inflammatory markers related to acute COVID 19 pneumonia 4 Hyponatremia, related to hypovolemia, patient has been having symptoms of nausea and diarrhea, decreased oral intake on outpatient basis, recovered 5 Mild intermittent bronchial asthma 6 Never smoker 7 Hypertension 8 Diabetes mellitus type 2 9 Anxiety/depression Plan: Chest x-ray and labs was reviewed. The labs are improving and the CRP and LDH on the decline. The patient is going to have another follow-up chest x-ray in the morning. We will continue the current treatment plan Follow-up labs in a.m. We'll continue to follow
[2020-09-28] MEDS ORDERED: POTASSIUM CHLORIDE ER 20 MEQ TAB.ER PO STA (12:43)
--- NOTE | 2020-09-28 12:56 | P.PN ---
<Laurent Shankar - Last Filed: 09/28/20 12:37> Subjective Progress Note Date: 09/28/20 Principal diagnosis: COVID Pneumonia Hospital course: Patient is a 59-year-old female with a past medical history including hypertension, diabetes mellitus type 2, neuropathy, chronic back pain, mild intermittent bronchial asthma, anxiety, depression, and obesity. She presented to [facility] on 09/24/20 with a chief complaint of generalized fatigue, weakness, productive cough, and shortness of breath beginning approximately 10 days prior to arrival accompanied by a low-grade fever, productive cough of yellow phlegm, body aches, chills, decreased appetite, nausea, vomiting, diarrhea, and diaphoresis. Patient was found to be positive for Covid 19 virus infection per PCR and have mild pulmonary bilateral interstitial pneumonia per chest x-ray findings. Patient was admitted under our services for treatment of hyperglycemia, hypomagnesemia, hyponatremia, and Covid pneumonia requiring supplemental oxygenation and treatment with steroids. P atient had elevated CRP of 179.2 and LDH of 1058. Repeat CXR completed 09/27/20 revealing patchy right perihilar and right basilar infiltrate as well as patchy infiltrate in the left perihilar region compatible with pneumonia. Physical exam: Patient was seen and fully evaluated at the bedside this morning. Patient reports feeling slightly improved this morning. She remains on 2 L O2 via nasal cannula with SpO2 of 92%. Her respirations were even, regular, and unlabored. Patient reports improvement in cough but continues to have a persistent dry co ugh. Patient has been using Mucinex 600 mg twice a day along with Tessalon cough drops. Patient denies having any headache, lightheadedness, dizziness, chest pain, palpitations, abdominal pain, nausea, vomiting, or experiencing any pain/swelling/weakness in extremities. She has been afebrile for greater than 24 hours. Repeat pro-calcitonin was also normal findings is 0.08. CBC and BMP showed no significant abnormalities with the exception of mild hypokalemia with K+ 3.4 and orders were given for replacement. CRP and LDH significantly improving. CRP down to 13.8 from previous 179.2 and LDH of 383 from previous of 1058. Patient apparently 4 of Decadron. We will continue treatment with De cadron, Mucinex, Tessalon Perles, colchicine, vitamin C, vitamin D, zinc, and melatonin. Pulmonology ordered for repeat chest x-ray tomorrow a.m. We will continue to wean oxygen as patient tolerates. General: non toxic, no distress, appears at stated age Derm: warm, dry Head: atraumatic, normocephalic, symmetric Eyes: EOMI, no lid lag, anicteric sclera Mouth: no lip lesion, mucus membranes moist Cardiovascular: Regular rate and rhythm, no murmur, positive posterior tibial pulses bilaterally, cap refill less than 2 seconds Lungs: Respirations even, regular, and unlabored on 3 L O2 via nasal cannula, patient was hypoxic on room air with SpO2 of 83% requiring being placed back on oxygen supplementation. Lungs with soft crackles at bilateral bases posteriorly, no coarse rhonchi, rales, or expiratory wheezes present. Abdominal: soft, nontender to palpation, no guarding, no appreciable organomegaly Ext: no gross muscle atrophy, no edema, no contractures Neuro: GCS 15. Speech clear. CN II-XI grossly intact, no focal neuro deficits Psych: Alert, oriented, appropriate affect Assessment Plan of Care: COVID Pneumonia -Continue steroids with Decadron 6 mg daily (day 4 of steroids) -Continue colchicine, Vitamin C, vitamin D, zinc, and melatonin. -Mucinex 600 mg BID and Tessalon Perles as needed for cough. -Continue to titrate oxygen to maintain SpO2 equal to or greater than 92% begin weaning from oxygen as soon as patient is able. Patient requiring 2 L at this time with SpO2 92%. -MDIs as needed for SOB and/or wheezing -Incentive Spirometry, patient again encouraged to use 10-15 times per hour while awake. -Continued close monitoring with repeat daily CBC, CMP, CRP, LDH, and ferritin. -Repeat x-ray tomorrow a.m. Diabetes mellitus type 2 with hyperglycemia, improving -Continue Glycemic protocol with NovoLog sliding scale and Levemir nightly -Current Hyperglycemia likely secondary to steroid use with recent A1c 8.5 on 05/13/20. -Heart healthy carb consistent diet. Hypomagnesemia, resolved Hyponatremia, resolved Hypertension, stable -Monitor vital signs and Continue daily medication regimen with Norvasc and lisinopril. Anxiety and depression -Continue daily medication regimen with Zoloft. Chronic back pain with neuropathy -Continue daily medication management with Oxycodone, zanaflex, and Neurontin as prescribed by pain management physician. CODE STATUS: Full code DVT prophylaxis: Lovenox Discussed with: Patient and RN Anticipated discharge date: 1-[address]: Home A total of 35 minutes was spent on the care of this complex patient more than 50% of the time was spent in counseling and care coordination. Objective - Vital Signs Vital signs: Vital Signs Temp 98.6 F 09/28/20 09:49 Pulse 55 L 09/28/20 09:49 Resp 18 09/28/20 09:49 BP 110/66 09/28/20 09:49 Pulse Ox 94 L 09/28/20 09:49 Intake & Output 09/27/20 09/28/20 09/28/20 18:59 06:59 18:59 Other: Voiding Method Toilet Toilet # Voids 3 2 # Bowel Movements 1 - Labs CBC & Chem 7: 09/28/20 05:39 09/28/20 05:39 Labs: Abnormal Lab Results - Last 24 Hours (Table) 09/27/20 09/27/20 09/27/20 Range/Units 13:00 16:59 20:12 RBC (4.10-5.20) X 10*6/uL Hgb (12.0-15.0) g/dL Hct (37.2-46.3) % D-Dimer (<0.60) mg/L FEU Potassium (3.5-5.5) mmol/L BUN/Creatinine Ratio (12.00-20.00) Ratio Glucose (70-110) mg/dL POC Glucose (mg/dL) 334 H 257 H (75-99) mg/dL Calcium (8.7-10.3) mg/dL Lactate Dehydrogenase (120-246) U/L C-Reactive Protein (0.0-0.8) mg/dL Urine Protein 1+ H (Negative) Urine Glucose (UA) 4+ H (Negative) Urine Blood Small H (Negative) Urine RBC 12 H (0-5) /hpf Urine Bacteria Rare H (None) /hpf Urine Mucus Rare H (None) /hpf 09/28/20 09/28/20 09/28/20 Range/Units 05:39 05:39 05:39 RBC 3.80 L (4.10-5.20) X 10*6/uL Hgb 11.1 L (12.0-15.0) g/dL Hct 32.4 L (37.2-46.3) % D-Dimer 1.15 H (<0.60) mg/L FEU Potassium 3.4 L (3.5-5.5) mmol/L BUN/Creatinine Ratio 27.14 H (12.00-20.00) Ratio Glucose 179 H (70-110) mg/dL POC Glucose (mg/dL) (75-99) mg/dL Calcium 8.5 L (8.7-10.3) mg/dL Lactate Dehydrogenase 383 H (120-246) U/L C-Reactive Protein 13.8 H (0.0-0.8) mg/dL Urine Protein (Negative) Urine Glucose (UA) (Negative) Urine Blood (Negative) Urine RBC (0-5) /hpf Urine Bacteria (None) /hpf Urine Mucus (None) /hpf 09/28/20 09/28/20 Range/Units 06:54 11:24 RBC (4.10-5.20) X 10*6/uL Hgb (12.0-15.0) g/dL Hct (37.2-46.3) % D-Dimer (<0.60) mg/L FEU Potassium (3.5-5.5) mmol/L BUN/Creatinine Ratio (12.00-20.00) Ratio Glucose (70-110) mg/dL POC Glucose (mg/dL) 192 H 252 H (75-99) mg/dL Calcium (8.7-10.3) mg/dL Lactate Dehydrogenase (120-246) U/L C-Reactive Protein (0.0-0.8) mg/dL Urine Protein (Negative) Urine Glucose (UA) (Negative) Urine Blood (Negative) Urine RBC (0-5) /hpf Urine Bacteria (None) /hpf Urine Mucus (None) /hpf Microbiology - Last 24 Hours (Table) 09/24/20 21:55 Blood Culture - Preliminary Blood No Growth after 72 hours 09/24/20 22:10 Blood Culture - Preliminary Blood No Growth after 72 hours <Radha Herrera - Last Filed: 09/28/20 14:30> Objective - Vital Signs Vital signs: Vital Signs Temp 98.6 F 09/28/20 09:49 Pulse 55 L 09/28/20 09:49 Resp 18 09/28/20 09:49 BP 110/66 09/28/20 09:49 Pulse Ox 94 L 09/28/20 09:49 Intake & Output 09/27/20 09/28/20 09/28/20 18:59 06:59 18:59 Other: Voiding Method Toilet Toilet # Voids 3 2 # Bowel Movements 1 - Labs CBC & Chem 7: 09/28/20 05:39 09/28/20 05:39 Labs: Abnormal Lab Results - Last 24 Hours (Table) 09/27/20 09/27/20 09/28/20 Range/Units 16:59 20:12 05:39 RBC 3.80 L (4.10-5.20) X 10*6/uL Hgb 11.1 L (12.0-15.0) g/dL Hct 32.4 L (37.2-46.3) % D-Dimer (<0.60) mg/L FEU Potassium (3.5-5.5) mmol/L BUN/Creatinine Ratio (12.00-20.00) Ratio Glucose (70-110) mg/dL POC Glucose (mg/dL) 334 H 257 H (75-99) mg/dL Calcium (8.7-10.3) mg/dL Lactate Dehydrogenase (120-246) U/L C-Reactive Protein (0.0-0.8) mg/dL 09/28/20 09/28/20 09/28/20 Range/Units 05:39 05:39 06:54 RBC (4.10-5.20) X 10*6/uL Hgb (12.0-15.0) g/dL Hct (37.2-46.3) % D-Dimer 1.15 H (<0.60) mg/L FEU Potassium 3.4 L (3.5-5.5) mmol/L BUN/Creatinine Ratio 27.14 H (12.00-20.00) Ratio Glucose 179 H (70-110) mg/dL POC Glucose (mg/dL) 192 H (75-99) mg/dL Calcium 8.5 L (8.7-10.3) mg/dL Lactate Dehydrogenase 383 H (120-246) U/L C-Reactive Protein 13.8 H (0.0-0.8) mg/dL 09/28/20 Range/Units 11:24 RBC (4.10-5.20) X 10*6/uL Hgb (12.0-15.0) g/dL Hct (37.2-46.3) % D-Dimer (<0.60) mg/L FEU Potassium (3.5-5.5) mmol/L BUN/Creatinine Ratio (12.00-20.00) Ratio Glucose (70-110) mg/dL POC Glucose (mg/dL) 252 H (75-99) mg/dL Calcium (8.7-10.3) mg/dL Lactate Dehydrogenase (120-246) U/L C-Reactive Protein (0.0-0.8) mg/dL Microbiology - Last 24 Hours (Table) 09/24/20 21:55 Blood Culture - Preliminary Blood No Growth after 72 hours 09/24/20 22:10 Blood Culture - Preliminary Blood No Growth after 72 hours Assessment and Plan Assessment: Patient seen and examined independently. Patient was also seen by Laurent Shankar NP and case was discussed. I am in agreement with subjective, physical exam, assessment and plan as written above and amended below. She reports that she still feels terrible. Breathing is slightly better. General: Ill-appearing no distress,, appears at stated age Derm: warm, dry Head: atraumatic, normocephalic, symmetric Eyes: EOMI, no lid lag, anicteric sclera Mouth: no lip lesion, mucus membranes moist Lungs: No accessory muscle use, speaking in complete sentences without difficulty. Psych: Alert, oriented, appropriate affect
[2020-09-28 16:42] LABS: Glucose,Whole Blood 312 mg/dL (75-99)
[2020-09-28] MEDS: ONDANSETRON 4 MG/2 ML VIAL IVP PRN (18:10)
[2020-09-28 21:40] LABS: Glucose,Whole Blood 219 mg/dL (75-99)
[2020-09-28] MEDS: MELATONIN 5 MG TABLET PO SCH (22:31)
[2020-09-28] MEDS: INSULIN DETEMIR (LEVEMIR) 100 UNIT/ML SYR SQ SCH (22:31)
[2020-09-29 07:14] LABS: Glucose,Whole Blood 180 mg/dL (75-99)
[2020-09-29] MEDS: ALBUTEROL HFA INHALER INHALATION PRN ×2 (08:42→12:10)
[2020-09-29] MEDS: GABAPENTIN 300 MG CAP PO SCH ×3 (08:47→20:51)
[2020-09-29] MEDS: dexAMETHasone 2 MG TAB PO SCH (08:47)
[2020-09-29] MEDS: MONTELUKAST 10 MG TAB PO SCH (08:48)
[2020-09-29] MEDS: SERTRALINE 100 MG TAB PO SCH (08:48)
[2020-09-29] MEDS: ASCORBIC ACID 500 MG TAB PO SCH (08:48)
[2020-09-29] MEDS: CHOLECALCIFEROL 25 MCG (1000 IU) TABLET PO SCH (08:48)
[2020-09-29] MEDS: COLCHICINE 0.6 MG EACH PO SCH ×2 (08:48→20:50)
[2020-09-29] MEDS: guaiFENesin 600 MG TABLET.ER PO SCH ×2 (08:49→20:50)
[2020-09-29] MEDS: ZINC SULFATE 220 MG CAP PO SCH (08:49)
[2020-09-29] MEDS: INSULIN ASPART (NovoLOG) 100 UNIT/ML VIAL SQ SCH ×7 (08:49→20:50)
[2020-09-29] MEDS: amLODIPine 10 MG TAB PO SCH (08:49)
[2020-09-29] MEDS: lisinopriL 20 MG TAB PO SCH (08:49)
[2020-09-29] MEDS: ENOXAPARIN 40 MG/0.4 ML SYRINGE SQ SCH (08:50)
[2020-09-29] MEDS: BENZONATATE 100 MG CAP PO PRN ×2 (08:58→20:51)
[2020-09-29 10:33] LABS: HCT 33.2 % (37.2-46.3); HGB 11.1 g/dL (12.0-15.0); MCHC 33.4 g/dL (32.0-37.0); MCV 86.7 fL (80.0-97.0); Mean Platelet Volume 11.1 fL (9.5-12.2); Platelet Count 288 X 10*3/uL (140-440); RBC 3.83 X 10*6/uL (4.10-5.20); RDW 12.3 % (11.5-14.5); WBC 10.44 X 10*3/uL (4.50-10.00)
[2020-09-29 10:45] LABS: Ferritin 273.7 ng/mL (10.0-291.0)
[2020-09-29 10:47] LABS: African American GFR (CKD) 94.9 (60.0-200.0); Anion Gap 9.2 mmol/L (4.00-12.00); C Reactive Protein 8.4 mg/dL (0.0-0.8); Calcium 8.6 mg/dL (8.7-10.3); Carbon Dioxide 23.8 mmol/L (21.6-31.8); Non-African American GFR(CKD) 81.8 (60.0-200.0)
--- NOTE | 2020-09-29 11:13 | P.PN ---
Subjective Progress Note Date: 09/29/20 Principal diagnosis: COVID Pneumonia Hospital course: Patient is a 59-year-old female with a past medical history including hypertension, diabetes mellitus type 2, neuropathy, chronic back pain, mild intermittent bronchial asthma, anxiety, depression, and obesity. She presented to [facility] on 09/24/20 with a chief complaint of generalized fatigue, weakness, productive cough, and shortness of breath beginning appro ximately 10 days prior to arrival accompanied by a low-grade fever, productive cough of yellow phlegm, body aches, chills, decreased appetite, nausea, vomiting, diarrhea, and diaphoresis. Patient was found to be positive for Covid 19 virus infection per PCR and have mild pulmonary bilateral interstitial pneumonia per chest x-ray findings. Patient was admitted under our services for treatment of hyperglycemia, hypomagnesemia, hyponatremia, and Covid pneumonia requiring supplemental oxygenation and treatment with steroids. Patient had elevated CRP of 179.2 and LDH of 1058. Repeat CXR completed 09/27/20 revealing patchy right perihilar and right basilar infiltrate as well as patchy infiltrate in the left perihilar region compatible with pneumonia. Physical exam: 09/29/20 Patient was seen and fully evaluated at the bedside this morning. Patient reports feeling slightly worse this morning, stating she is having increased shortness of breath and persistent dry cough. Patient was weaned off oxygen this morning and an ambulatory pulse oximetry was obtained patient dropped down to 77% on room air. Patient was placed on 4 L O2 bringing SpO2 mikhail k up to 90-91%, patient took approximately 20 minutes to recover. Patient has been using rescue inhaler 2-3 times daily, Mucinex twice daily, and Tessalon daily. Today is day 5 of Decadron. LDH and CRP continued to improve with LDH of 377 and CRP of 8.4 this morning. Patient remains afebrile and vital signs have been stable. She denies having any headache, lightheadedness, dizziness, changes in vision or hearing, sore throat or dysphagia, chest pain or palpitations, abdominal pain, nausea, vomiting, or any other complaints at this time. We will continue treatment with Decadron, Mucinex, Tessalon Perles, colchicine, vitamin C, vitamin D, zinc, and melatonin. Awaiting repeat chest x-ray to be completed and further recommendations from pulmonology. General: non toxic, no distress, appears at stated age Derm: warm, dry Head: atraumatic, normocephalic, symmetric Eyes: EOMI, no lid lag, anicteric sclera Mouth: no lip lesion, mucus membranes moist Cardiovascular: Regular rate and rhythm, no murmur, positive posterior tibial pulses bilaterally, cap refill less than 2 seconds Lungs: Respirations even, regular, and unlabored on 3 L O2 via nasal cannula, patient was hypoxic on room air with SpO2 of 83% requiring being placed back on oxygen supplementation. Lungs with soft crackles at bilateral bases posteriorly, no coarse rhonchi, rales, or expiratory wheezes present. Abdominal: soft, nontender to palpation, no guarding, no appreciable o rganomegaly Ext: no gross muscle atrophy, no edema, no contractures Neuro: GCS 15. Speech clear. CN II-XI grossly intact, no focal neuro deficits Psych: Alert, oriented, appropriate affect Assessment Plan of Care: COVID Pneumonia -Continue steroids with Decadron 6 mg daily (day 5 of steroids) -Continue colchicine, Vitamin C, vitamin D, zinc, and melatonin. -Mucinex 600 mg BID and Tessalon Perles as needed for cough. -Continue to titrate oxygen to maintain SpO2 equal to or greater than 92% begin weaning from oxygen as soon as patient is able. Patient requiring 4 L at this time with SpO2 91%. -MDIs as needed for SOB and/or wheezing -Incentive Spirometry 10-15 times per hour while awake. -Continued close monitoring with repeat daily CBC, CMP, CRP, LDH, and ferritin. -Repeat x-ray pending results at this time. Diabetes mellitus type 2 with hyperglycemia, improving -Continue Glycemic protocol with NovoLog sliding scale and Levemir nightly -Current Hyperglycemia likely secondary to steroid use with recent A1c 8.5 on 05/13/20. -Heart healthy carb consistent diet. Hypomagnesemia, resolved Hyponatremia, resolved Hypertension, stable -Monitor vital signs and Continue daily medication regimen with Norvasc and lisinopril. Anxiety and depression -Continue daily medication regimen with Zoloft. Chronic back pain with neuropathy -Continue daily medication management with Oxycodone, zanaflex, and Neurontin as prescribed by pain management physician. CODE STATUS: Full code DVT prophylaxis: Lovenox Discussed with: Patient and RN Anticipated discharge date: Pending clinical course Anticipated discharge place: Home A total of 35 minutes was spent on the care of this complex patient more than 50% of the time was spent in counseling and care coordination. Objective - Vital Signs Vital signs: Vital Signs Temp 97.6 F 09/29/20 10:37 Pulse 55 L 09/29/20 10:37 Resp 16 09/29/20 10:37 BP 104/60 09/29/20 10:37 Pulse Ox 94 L 09/29/20 10:37 Intake & Output 09/28/20 09/29/20 09/29/20 18:59 06:59 18:59 Intake Total 200 Balance 200 Intake: Oral 200 Other: Voiding Method Toilet Toilet Toilet # Voids 3 2 2 # Bowel Movements 1 - Labs CBC & Chem 7: 09/29/20 06:23 09/29/20 06:23 Labs: Abnormal Lab Results - Last 24 Hours (Table) 09/28/20 09/28/20 09/28/20 Range/Units 05:39 11:24 16:38 WBC (4.50-10.00) X 10*3/uL RBC (4.10-5.20) X 10*6/uL Hgb (12.0-15.0) g/dL Hct (37.2-46.3) % D-Dimer (<0.60) mg/L FEU Potassium 3.4 L (3.5-5.5) mmol/L BUN/Creatinine Ratio 27.14 H (12.00-20.00) Ratio Glucose 179 H (70-110) mg/dL POC Glucose (mg/dL) 252 H 312 H (75-99) mg/dL Calcium 8.5 L (8.7-10.3) mg/dL Lactate Dehydrogenase 383 H (120-246) U/L C-Reactive Protein 13.8 H (0.0-0.8) mg/dL 09/28/20 09/29/20 09/29/20 Range/Units 21:37 06:23 06:23 WBC 10.44 H (4.50-10.00) X 10*3/uL RBC 3.83 L (4.10-5.20) X 10*6/uL Hgb 11.1 L (12.0-15.0) g/dL Hct 33.2 L (37.2-46.3) % D-Dimer (<0.60) mg/L FEU Potassium (3.5-5.5) mmol/L BUN/Creatinine Ratio 25.00 H (12.00-20.00) Ratio Glucose 155 H (70-110) mg/dL POC Glucose (mg/dL) 219 H (75-99) mg/dL Calcium 8.6 L (8.7-10.3) mg/dL Lactate Dehydrogenase 377 H (120-246) U/L C-Reactive Protein 8.4 H (0.0-0.8) mg/dL 09/29/20 09/29/20 Range/Units 06:23 07:01 WBC (4.50-10.00) X 10*3/uL RBC (4.10-5.20) X 10*6/uL Hgb (12.0-15.0) g/dL Hct (37.2-46.3) % D-Dimer 1.18 H (<0.60) mg/L FEU Potassium (3.5-5.5) mmol/L BUN/Creatinine Ratio (12.00-20.00) Ratio Glucose (70-110) mg/dL POC Glucose (mg/dL) 180 H (75-99) mg/dL Calcium (8.7-10.3) mg/dL Lactate Dehydrogenase (120-246) U/L C-Reactive Protein (0.0-0.8) mg/dL Microbiology - Last 24 Hours (Table) 09/24/20 21:55 Blood Culture - Preliminary Blood No Growth after 96 hours 09/24/20 22:10 Blood Culture - Preliminary Blood No Growth after 96 hours
--- NOTE | 2020-09-29 11:17 | XR ---
EXAMINATION TYPE: XR chest 1V portable DATE OF EXAM: 09/29/2020 COMPARISON: 09/27/2020 INDICATION: Short of breath TECHNIQUE: Single frontal view of the chest is obtained. FINDINGS: The heart size is normal. The pulmonary vasculature is normal. Improving infiltrates in the right mid and lower lung reyez Infiltrate at the left base retrocardiac region appears unchanged IMPRESSION: 1. Infiltrates within the mid right and right lower lung field improving from comparison. 2. Stable left lower lobe infiltrate
[2020-09-29 11:39] LABS: Glucose,Whole Blood 264 mg/dL (75-99)
--- NOTE | 2020-09-29 16:45 | P.PN ---
Subjective Progress Note Date: 09/29/20 Principal diagnosis: Acute hypoxic respiratory failure related to acute COVID 19 pneumonia This is a 59-year-old white female patient with past medical history of mild intermittent bronchial asthma, diabetes mellitus type 2, hypertension, previous episode of pneumonia, anxiety, depression, obesity, lifetime nonsmoker, who presented to the emergency department on 09/24/2020 with complaints of cough, dyspnea. Her symptoms started about 10 days ago with not feeling well, low- grade fever, diffuse body aches. She does admit to having nausea and diarrhea. She hasn't been able to eat much or drink related to stomach aches, nausea and diarrhea. She had a telemetry health visit with her primary care provider, BEN Jean, and was given an antibiotic, steroids, and an inhaler. Her cough is productive of yellow phlegm. Denied any hemoptysis, denied any chest discomfort. Denied any headaches, denied any lightheadedness, dizziness, no visual disturbances. Chest x-ray showed bilateral interstitial pneumonia. COVID 19 PCR was positive, LDH was 815, CRP was 137, patient was lymphopenic with lymphocyte count of 0.7, the rest of the CBC was within normal limits, d- dimer was 0.55, sodium was 129, BUN is 20, creatinine 0.61, CO2 was 19, possibly lactic acid was 1.1, LFTs were within normal limits, pro-calcitonin level was 0.09. Serum glucose level was 347. Patient is on oral Decadron 6 mg daily, she is on prophylactic dose Lovenox, she is on IV hydration at the 130 ML per hour. T-max is 99.7F over the last 24 hours, room air pulse ox is currently 93%. The patient is seen today 09/26/2020 in follow-up on the regular medical floor. She is currently sitting up in a chair at the bedside. Awake and alert in no acute distress. She is maintaining O2 saturation in the 90s on 2 L/m per nasal cannula. She's been afebrile. Hemodynamically stable. She has a loose nonproductive cough. No fever, chills or night sweats. She is dyspneic on minimal exertion. Less diarrhea. Blood cultures reveal no growth. Blood glucose 355. She remains on vitamin supplements, dexamethasone, Lovenox, Colcrys. The patient is seen today 09/27/2020 in follow-up on the regular medical floor. She is currently sitting up in chair at the bedside. Awake and alert in no acute distress. She is maintaining O2 saturation in the 90s on 3 L/m per nasal cannula. She was 83% on room air earlier this morning. Chest x-ray reveals patchy right perihilar and right basilar infiltrate as well as patchy infiltrate in the left perihilar region. She's afebrile. Hemodynamically stable. Blood cultures reveal no growth. White count 9.5. Hemoglobin 12.9. Sodium 136. Potassium 3.9. Creatinine 0.65. LDH 1058, C-reactive protein 179. She remains on vitamin supplements, dexamethasone, Lovenox, Colcrys. On today's evaluation of 09/28/2020, complains and the patient remains on oxygen at 2 L per minute nasal cannula. Note that the patient is being treated for " with activity related pneumonia. She is currently on Decadron and she is also on colchicine. The inflammatory markers are improving. The CRP is down to 13 and a LDH is down to 383. Her chest x-ray from yesterday shows patchy right perihilar and right basilar infiltrate as well as a patchy infiltrate in the left perihilar region compatible with COVID related pneumonia. No altered mentation. No nausea. No vomiting. No diarrhea. No other complaints otherwise. She continues to have a cough that sometimes congested. No chest pain. She is having still shortness of breath with limited amount of activity. On 09/29/2050 patient seen in follow-up on medical floor. Patient is breathing comfortably, she denies any acute distress, she is currently down to 1 L and the pulse ox is 94%, no fever or chills, no nausea vomiting diarrhea, blood pressure has been stable. Room air pulse ox with exercise was noted to be at 77%, and patient does qualify for home oxygen is on today's home oxygen evaluation. Today's labs have been noted, white blood cell count is 10.4, hemoglobin is 11, d-dimer is 1.18, electrolytes and renal profile were within normal limits. Inflammatory markers are improving, pro-calcitonin level was negative. Patient continues on colchicine, vitamin C, vitamin D, zinc, oral Decadron, and prophylactic Lovenox Objective - Vital Signs Vital signs: Vital Signs Temp 98.4 F 09/29/20 15:04 Pulse 60 09/29/20 15:04 Resp 16 09/29/20 15:04 BP 144/82 09/29/20 15:04 Pulse Ox 94 L 09/29/20 15:04 Intake & Output 09/28/20 09/29/20 09/29/20 18:59 06:59 18:59 Intake Total 200 Balance 200 Intake: Oral 200 Other: Voiding Method Toilet Toilet Toilet # Voids 3 2 2 # Bowel Movements 1 - Exam GENERAL EXAM: Alert, very pleasant, 59-year-old white female, on room air, with a pulse ox of 93-94% on 1l/min% comfortable in no apparent distress. HEAD: Normocephalic/atraumatic. EYES: Normal reaction of pupils, equal size. Conjunctiva pink, sclera white. NOSE: Clear with pink turbinates. THROAT: No erythema or exudates. NECK: No masses, no JVD, no thyroid enlargement, no adenopathy. CHEST: No chest wall deformity. Symmetrical expansion. LUNGS: Equal air entry with bilateral crackles CVS: Regular rate and rhythm, normal S1 and S2, no gallops, no murmurs, no rubs ABDOMEN: Soft, nontender. No hepatosplenomegaly, normal bowel sounds, no guarding or rigidity. EXTREMITIES: No clubbing, no edema, no cyanosis, 2+ pulses and upper and lower extremities. MUSCULOSKELETAL: Muscle strength and tone normal. SPINE: No scoliosis or deformity SKIN: No rashes CENTRAL NERVOUS SYSTEM: Alert and oriented -3. No focal deficits, tone is normal in all 4 extremities. PSYCHIATRIC: Alert and oriented -3. Appropriate affect. Intact judgment and insight. - Labs CBC & Chem 7: 09/29/20 06:23 09/29/20 06:23 Labs: Abnormal Lab Results - Last 24 Hours (Table) 09/28/20 09/28/20 09/29/20 Range/Units 16:38 21:37 06:23 WBC 10.44 H (4.50-10.00) X 10*3/uL RBC 3.83 L (4.10-5.20) X 10*6/uL Hgb 11.1 L (12.0-15.0) g/dL Hct 33.2 L (37.2-46.3) % D-Dimer (<0.60) mg/L FEU BUN/Creatinine Ratio (12.00-20.00) Ratio Glucose (70-110) mg/dL POC Glucose (mg/dL) 312 H 219 H (75-99) mg/dL Calcium (8.7-10.3) mg/dL Lactate Dehydrogenase (120-246) U/L C-Reactive Protein (0.0-0.8) mg/dL 09/29/20 09/29/20 09/29/20 Range/Units 06:23 06:23 07:01 WBC (4.50-10.00) X 10*3/uL RBC (4.10-5.20) X 10*6/uL Hgb (12.0-15.0) g/dL Hct (37.2-46.3) % D-Dimer 1.18 H (<0.60) mg/L FEU BUN/Creatinine Ratio 25.00 H (12.00-20.00) Ratio Glucose 155 H (70-110) mg/dL POC Glucose (mg/dL) 180 H (75-99) mg/dL Calcium 8.6 L (8.7-10.3) mg/dL Lactate Dehydrogenase 377 H (120-246) U/L C-Reactive Protein 8.4 H (0.0-0.8) mg/dL 09/29/20 Range/Units 11:38 WBC (4.50-10.00) X 10*3/uL RBC (4.10-5.20) X 10*6/uL Hgb (12.0-15.0) g/dL Hct (37.2-46.3) % D-Dimer (<0.60) mg/L FEU BUN/Creatinine Ratio (12.00-20.00) Ratio Glucose (70-110) mg/dL POC Glucose (mg/dL) 264 H (75-99) mg/dL Calcium (8.7-10.3) mg/dL Lactate Dehydrogenase (120-246) U/L C-Reactive Protein (0.0-0.8) mg/dL Microbiology - Last 24 Hours (Table) 09/24/20 21:55 Blood Culture - Preliminary Blood No Growth after 96 hours 09/24/20 22:10 Blood Culture - Preliminary Blood No Growth after 96 hours Assessment and Plan Plan: Assessment: #1. Acute hypoxic respiratory failure, mild at this point, related to acute COVID 19 pneumonia. Onset of symptoms was 10 days prior to her presentation, and patient is out of the therapeutic window for Remdesivir #2. Failure of outpatient treatment, patient was started on azithromycin and prednisone taper for her symptoms of shortness of breath, cough, by her PCP #3. Increased inflammatory markers related to acute COVID 19 pneumonia #4. Hyponatremia, related to hypovolemia, patient has been having symptoms of nausea and diarrhea, decreased oral intake on outpatient basis, recovered #5. Mild intermittent bronchial asthma #6. Never smoker #7. Hypertension #8. Diabetes mellitus type 2 #9. Anxiety/depression Plan: Continue current medical treatment, taking oral Decadron, vitamins, prophylactic anticoagulation. No worsening dyspnea, FiO2 is down to 1 L, inflammatory markers are improving, today's d-dimer has been noted, no acute events overnigh t, possible discharge home in the next 24 hours, I performed a history & physical examination of the patient and discussed their management with my nurse practitioner, Shell Murphy. I reviewed the nurse practitioner's note and agree with the documented findings and plan of care. Lung sounds are positive for diminished breath sounds. The findings and the impression was discussed with the patient. I attest to the documentation by the nurse practitioner. Time with Patient: Less than 30
[2020-09-29 17:07] LABS: Glucose,Whole Blood 382 mg/dL (75-99)
[2020-09-29 20:35] LABS: Glucose,Whole Blood 343 mg/dL (75-99)
[2020-09-29] MEDS: MELATONIN 5 MG TABLET PO SCH (20:51)
[2020-09-29] MEDS: INSULIN DETEMIR (LEVEMIR) 100 UNIT/ML SYR SQ SCH (20:51)
[2020-09-30 07:29] LABS: Glucose,Whole Blood 208 mg/dL (75-99)
[2020-09-30] MEDS: ASCORBIC ACID 500 MG TAB PO SCH (07:49)
[2020-09-30] MEDS: lisinopriL 20 MG TAB PO SCH (07:49)
[2020-09-30] MEDS: CHOLECALCIFEROL 25 MCG (1000 IU) TABLET PO SCH (07:49)
[2020-09-30] MEDS: GABAPENTIN 300 MG CAP PO SCH (07:49)
[2020-09-30] MEDS: guaiFENesin 600 MG TABLET.ER PO SCH (07:49)
[2020-09-30] MEDS: MONTELUKAST 10 MG TAB PO SCH (07:49)
[2020-09-30] MEDS: SERTRALINE 100 MG TAB PO SCH (07:49)
[2020-09-30] MEDS: amLODIPine 10 MG TAB PO SCH (07:49)
[2020-09-30] MEDS: INSULIN ASPART (NovoLOG) 100 UNIT/ML VIAL SQ SCH ×4 (07:50→13:04)
[2020-09-30] MEDS: ZINC SULFATE 220 MG CAP PO SCH (07:50)
[2020-09-30] MEDS: ENOXAPARIN 40 MG/0.4 ML SYRINGE SQ SCH (07:50)
[2020-09-30] MEDS: dexAMETHasone 2 MG TAB PO SCH (07:50)
[2020-09-30] MEDS: COLCHICINE 0.6 MG EACH PO SCH (07:51)
--- NOTE | 2020-09-30 11:41 | P.DS ---
Providers Date of admission: 09/24/20 22:52 Expected date of discharge: 09/30/20 Attending physician: Jamilah Quezada MD Consults: 09/25/20 01:38 Consult Physician Routine Consulting Provider: Paty Singer Consult Reason/Comments: COVID Do you want consulting provider notified?: Yes, Notify in am Primary care physician: MARK Jean Hospital Course: Discharge diagnoses: COVID Pneumonia -Continue Decadron for an additional 4 days Diabetes mellitus type 2 with hyperglycemia -Continue metformin and Actos and added on Januvia 50 mg daily Hypomagnesemia, resolved Hyponatremia, resolved Hypertension, stable Anxiety and depression Chronic back pain with neuropathy Hospital course: Patient is a 59-year-old female with a past medical history including hypertension, diabetes mellitus type 2, neuropathy, chronic back pain, mild intermittent bronchial asthma, anxiety, depression, and obesity. She presented to [facility] on 09/24/20 with a chief complaint of generalized fatigue, weakness, productive cough, and shortness of breath beginning approximately 10 days prior to arrival accompanied by a low-grade fever, productive cough of yellow phlegm, body aches, chills, decreased appetite, nausea, vomiting, diarrhea, and diaphoresis. Patient was found to be positive for Covid 19 virus infection per PCR and have mild pulmonary bilateral interstitial pneumonia per chest x-ray findings. Patient was admitted under our services for treatment of hyperglycemia, hypomagnesemia, hyponatremia, and Covid pneumonia requiring supplemental oxygenation, treatment with steroids, and evaluation by pulmonology. Repeat chest x-ray was obtained on 09/29/20 revealing infiltrates within the mid and right lower lung field were improving. Patient initially had elevated CRP of 179.2 and LDH of 1058 which showed great improvement over her stay and upon discharge CRP 8.4 and LDH 377. Hyponatremia and hypermagnesemia resolved. Patient remained hyperglycemic throughout stay with blood glucose levels mid 200's. Pt is being started on a DPP-4 inhibitor for tighter control of her blood glucose levels without risk of hypoglycemia. Patient to continue Actos and metformin and we are adding on Januvia 50 mg daily. Patient instructed to monitor glucose levels twice daily and keep a journal to bring to next appointment. Upon discharge patient has been weaned from oxygen and ambulating without difficulty maintaining her Oxygenation. Patient being discharged home on Decadron in which she will take for 4 more days for a total of 10 days of steroids. Physical exam: 09/29/20 Patient was seen and fully evaluated at the bedside this morning. Patient reports feeling better this morning and ready to go home. Patient has been completely weaned from oxygen and is on room air maintaining SpO2 at 94%. Ambulatory pulse ox was obtained and patient maintained oxygen levels without difficulties. Patient denies having any headache, lightheadedness, dizziness, chest pain, palpitations, or any other complaints at this time. Patient cleared by pulmonology and is stable for discharge home. General: non toxic, no distress, appears at stated age Derm: warm, dry Head: atraumatic, normocephalic, symmetric Eyes: EOMI, no lid lag, anicteric sclera Mouth: no lip lesion, mucus membranes moist Cardiovascular: Regular rate and rhythm, no murmur, positive posterior tibial pulses bilaterally, cap refill less than 2 seconds Lungs: Respirations even, regular, and unlabored on room air with no accessory muscle use. Lungs with soft crackles at bilateral bases posteriorly,improving. No coarse rhonchi, rales, or expiratory wheezes present. Abdominal: soft, nontender to palpation, no guarding, no appreciable organomegaly Ext: no gross muscle atrophy, no edema, no contractures Neuro: GCS 15. Speech clear. CN II-XI grossly intact, no focal neuro deficits Psych: Alert, oriented, appropriate affect A total of 45 minutes of time were spent preparing this complex discharge summary. Patient Condition at Discharge: Stable Plan - Discharge Summary Discharge Rx Participant: No New Discharge Prescriptions: New Colchicine [Colcrys] 0.6 mg PO BID #8 each dexAMETHasone [Hexadrol] 6 mg PO DAILY 4 Days #12 tab guaiFENesin [Mucinex] 600 mg PO Q12HR 7 Days #14 tablet.er Benzonatate [Tessalon Perles] 200 mg PO TID PRN #60 cap PRN Reason: Cough sitaGLIPtin PHOSPHATE [Januvia] 50 mg PO DAILY 30 Days #30 tab Continue metFORMIN HCL 1,000 mg PO HS Sertraline [Zoloft] 200 mg PO DAILY metFORMIN HCL 1,500 mg PO DAILY Montelukast Sodium [Singulair] 10 mg PO DAILY Lisinopril-Hctz 20-25 mg [Zestoretic 20-25] 1 tab PO DAILY Albuterol Sulfate [Albuterol Sulfate Hfa] 2 puff PO RT-Q6H PRN PRN Reason: Shortness Of Breath Ibuprofen [Motrin] 800 mg PO Q8H PRN PRN Reason: Pain Gabapentin 600 mg PO TID oxyCODONE HCL [oxyCODONE HCL (IR)] 15 mg PO QID PRN PRN Reason: Pain amLODIPine [Norvasc] 5 mg PO DAILY Pioglitazone [Actos] 45 mg PO DAILY tiZANidine HCL 4 mg PO Q8H PRN PRN Reason: Muscle Spasm Discontinued Amoxic-Pot Clav 875-125Mg [Augmentin 875-125] 1 tab PO BID predniSONE See Taper PO DIRECTED Discharge Medication List Albuterol Sulfate [Albuterol Sulfate Hfa] 2 puff PO RT-Q6H PRN 09/24/20 [History] Gabapentin 600 mg PO TID 09/24/20 [History] Ibuprofen [Motrin] 800 mg PO Q8H PRN 09/24/20 [History] Lisinopril-Hctz 20-25 mg [Zestoretic 20-25] 1 tab PO DAILY 09/24/20 [History] Montelukast Sodium [Singulair] 10 mg PO DAILY 09/24/20 [History] Pioglitazone [Actos] 45 mg PO DAILY 09/24/20 [History] Sertraline [Zoloft] 200 mg PO DAILY 09/24/20 [History] amLODIPine [Norvasc] 5 mg PO DAILY 09/24/20 [History] metFORMIN HCL 1,000 mg PO HS 09/24/20 [History] metFORMIN HCL 1,500 mg PO DAILY 09/24/20 [History] oxyCODONE HCL [oxyCODONE HCL (IR)] 15 mg PO QID PRN 09/24/20 [History] tiZANidine HCL 4 mg PO Q8H PRN 09/24/20 [History] Benzonatate [Tessalon Perles] 200 mg PO TID PRN #60 cap 09/30/20 [Rx] Colchicine [Colcrys] 0.6 mg PO BID #8 each 09/30/20 [Rx] dexAMETHasone [Hexadrol] 6 mg PO DAILY 4 Days #12 tab 09/30/20 [Rx] guaiFENesin [Mucinex] 600 mg PO Q12HR 7 Days #14 tablet.er 09/30/20 [Rx] sitaGLIPtin PHOSPHATE [Januvia] 50 mg PO DAILY 30 Days #30 tab 09/30/20 [Rx] Follow up Appointment(s)/Referral(s): Jade Hopson, MARK [Primary Care Provider] - 1-2 days (Please call office when symptom free. ) Pato Guajardo DO [Doctor of Osteopathic Medicine] - 11/03/20 10:15 am Activity/Diet/Wound Care/Special Instructions: Activity: As tolerated. Diet: Heart healthy diet Special Instructions: You are recovering from COVID pneumonia. Your cough may continue for up to 4-6 weeks. You may still become slightly short of breath with exertion, please take things slowly. Do not over exert yourself. Rest and take breaks frequently. Please maintain social isolation until after 10/04/20 (10 days after diagnosis with COVID 19 virus). Then continue with social distancing. You are being sent home on steroids and will continue to take these for 4 more days for a complete 10 day course. You are also being started out on another oral medication for your hyperglycemia. You will continue Actos and Metformin and we have added on Januvia. This is very important to take your medications as directed and monitor your blood sugars twice daily, once in the morning and once at night. You need to make a journal of these results and bring with you to your next appointment w ith your PCP. If your blood glucose levels are greater than 350 on 2 separate occasions, you will need to notify your PCP immediately. Discharge Disposition: HOME SELF-CARE
[2020-09-30 11:49] LABS: Glucose,Whole Blood 318 mg/dL (75-99)
[2020-09-30 12:11] VITALS: BP 152/75; PULSE 55; RESP 16; TEMP 98.1
--- NOTE | 2020-09-30 15:50 | P.PN ---
Subjective Progress Note Date: 09/30/20 Principal diagnosis: COVID 19 pneumonia The patient is seen today 09/27/2020 in follow-up on the regular medical floor. She is currently sitting up in chair at the bedside. Awake and alert in no acute distress. She is maintaining O2 saturation in the 90s on 3 L/m per nasal cannula. She was 83% on room air earlier this morning. Chest x-ray reveals patchy right perihilar and right basilar infiltrate as well as patchy infiltrate in the left perihilar region. She's afebrile. Hemodynamically stable. Blood cultures reveal no growth. White count 9.5. Hemoglobin 12.9. Sodium 136. Potassium 3.9. Creatinine 0.65. LDH 1058, C-reactive protein 179. She remains on vitamin supplements, dexamethasone, Lovenox, Colcrys. On today's evaluation of 09/28/2020, complains and the patient remains on oxygen at 2 L per minute nasal cannula. Note that the patient is being treated for "with activity related pneumonia. She is currently on Decadron and she is also on colchicine. The inflammatory markers are improving. The CRP is down to 13 and a LDH is down to 383. Her chest x-ray from yesterday shows patchy right perihilar and right basilar infiltrate as well as a patchy infiltrate in the left perihilar region compatible with COVID related pneumonia. No altered men tation. No nausea. No vomiting. No diarrhea. No other complaints otherwise. She continues to have a cough that sometimes congested. No chest pain. She is having still shortness of breath with limited amount of activity. On 09/29/2050 patient seen in follow-up on medical floor. Patient is breathing comfortably, she denies any acute distress, she is currently down to 1 L and the pulse ox is 94%, no fever or chills, no nausea vomiting diarrhea, blood pressure has been stable. Room air pulse ox with exercise was noted to be at 77%, and patient does qualify for home oxygen is on today's home oxygen evaluation. Today's labs have been noted, white blood cell count is 10.4, hemoglobin is 11, d-dimer is 1.18, electrolytes and renal profile were within normal limits. Inflammatory markers are improving, pro-calcitonin level was negative. Patient continues on colchicine, vitamin C, vitamin D, zinc, oral Decadron, and prophylactic Lovenox Progress note dated 07/30/2021. Currently, the patient seemed be doing relatively well. The patient saturations were stable on room air. It appears that she may not need home O2 on discharge. She's feeling much less short of breath. She still does have a bit of a cough. Not producing any phlegm. Denies any fever or chills. No chest pain or chest discomfort. She also denies any GI complaints at this nausea, vomiting, or diarrhea. Her vital signs have been relatively stable. Her most recent pro- calcitonin level was negative. We told the floor nurse, taking care of her, but the patient could be discharged home without being on colchicine. No new laboratory data today. Chest x-ray from September 29 was evaluated. The patient continues on vitamin C, vitamin D3, zinc, and Decadron. Objective - Vital Signs Vital signs: Vital Signs Temp 98.1 F 09/30/20 12:10 Pulse 55 L 09/30/20 12:10 Resp 16 09/30/20 12:10 BP 152/75 09/30/20 12:10 Pulse Ox 94 L 09/30/20 12:10 Intake & Output 09/29/20 09/30/20 09/30/20 18:59 06:59 18:59 Other: Voiding Method Toilet Toilet # Voids 2 4 # Bowel Movements 1 - Exam GENERAL EXAM: Alert, very pleasant, 59-year-old white female, with a pulse ox of 91% on room air at rest. No apparent distress, conversational dyspnea, or use of accessory muscles. HEAD: Normocephalic/atraumatic. EYES: Normal reaction of pupils, equal size. Conjunctiva pink, sclera white. NOSE: Clear with pink turbinates. THROAT: No erythema or exudates. NECK: No masses, no JVD, no thyroid enlargement, no adenopathy. CHEST: No chest wall deformity. Symmetrical expansion. LUNGS: Breath sounds equal bilaterally. A few scattered crackles are appreciated. No wheezes or rhonchi are noted. CVS: Regular rate and rhythm, normal S1 and S2, no gallops, no murmurs, no rubs. Heart rate 78 bpm. ABDOMEN: Soft, nontender. No hepatosplenomegaly, normal bowel sounds, no guard ing or rigidity. EXTREMITIES: No clubbing, no edema, no cyanosis, 2+ pulses and upper and lower extremities. MUSCULOSKELETAL: Muscle strength and tone normal. SPINE: No scoliosis or deformity SKIN: No rashes CENTRAL NERVOUS SYSTEM: Alert and oriented -3. No focal deficits, tone is normal in all 4 extremities. PSYCHIATRIC: Alert and oriented -3. Appropriate affect. Intact judgment and insight. - Labs CBC & Chem 7: 09/29/20 06:23 09/29/20 06:23 Labs: Abnormal Lab Results - Last 24 Hours (Table) 09/29/20 09/29/20 09/30/20 Range/Units 17:06 20:33 07:28 POC Glucose (mg/dL) 382 H 343 H 208 H (75-99) mg/dL 09/30/20 Range/Units 11:47 POC Glucose (mg/dL) 318 H (75-99) mg/dL Microbiology - Last 24 Hours (Table) 09/24/20 21:55 Blood Culture - Preliminary Blood No Growth after 120 hours 09/24/20 22:10 Blood Culture - Preliminary Blood No Growth after 120 hours Assessment and Plan Assessment: Acute hypoxemic respiratory failure, secondary to COVID 19 pneumonia. Increased inflammatory markers, related to coronavirus infection. Hypovolemic hyponatremia, improved. Mild intermittent chronic bronchial asthma. Lifelong nontobacco user. If essential hypertension. Type 2 diabetes mellitus. Anxiety/depression. Plan: Plan dated 09/30/2020. Currently, the patient seemed be doing relatively well. Her room air resting saturation is above 90%. The nurses were a walker up and down the hallway to see if she desaturates. Her medications are reviewed. We'll make recomme ndations in regards to what should the patient be discharged on. It is not necessary that the patient go home on colchicine. The patient will follow up with Dr. Singer in the office. Additional recommendations and suggestions are forthcoming. Possible discharge home today. No additional recommendations are made at this time. The patient should complete about 10 days of Decadron. She should continue on vitamin C, vitamin D3, and zinc. Time with Patient: Less than 30
== END 2020-09-30 13:26 | disposition home or self-care (01) | DRG 177 ==
LOC: EC 20:18 → 4SSUR 22:52
PROVIDERS: ADMIT Internal Medicine; ATTEND Internal Medicine
DX: U07.1 COVID-19 (principal); J12.82 Pneumonia due to coronavirus disease 2019; J96.01 Acute respiratory failure with hypoxia; E87.1 Hypo-osmolality and hyponatremia; Z68.41 Body mass index [BMI] 40.0-44.9, adult; E11.40 Type 2 diabetes mellitus with diabetic neuropathy, unspecified; E11.65 Type 2 diabetes mellitus with hyperglycemia; E66.01 Morbid (severe) obesity due to excess calories; I10 Essential (primary) hypertension; F32.9 Major depressive disorder, single episode, unspecified; F41.9 Anxiety disorder, unspecified; E83.42 Hypomagnesemia; E86.1 Hypovolemia; J45.20 Mild intermittent asthma, uncomplicated; G89.29 Other chronic pain; M54.9 Dorsalgia, unspecified; Z79.899 Other long term (current) drug therapy; Z79.84 Long term (current) use of oral hypoglycemic drugs; Z98.890 Other specified postprocedural states; Z87.01 Personal history of pneumonia (recurrent); Z88.1 Allergy status to other antibiotic agents
CPT/HCPCS: 36415; 71045; 80048; 80053; 81001; 81003; 82550; 82728; 83605; 83615; 83735; 83930; 84145; 85025; 85027; 85379; 85610; 85730; 86140; 87040; 87635; 93005; 94640; 94760; 99285

== ENCOUNTER → 2021-02-27 | Outpatient (CLI) | payer MEDICARE ==
--- NOTE | 2021-03-05 10:56 | MM ---
Reason for exam: screening (asymptomatic). Last mammogram was performed 6 years and 7 months ago. History: Patient is postmenopausal. Physical Findings: A clinical breast exam by your physician is recommended on an annual basis and results should be correlated with mammographic findings. MG 3D Screening Mammo W/Cad Bilateral CC and MLO view(s) were taken. Prior study comparison: July 30, 2014, bilateral MG screening mammo w CAD. June 28, 2013, bilateral digital screening mammo w/CAD. There are scattered fibroglandular densities. Stable benign calcifications. There is no discrete abnormality. No significant changes when compared with prior studies. ASSESSMENT: Benign, BI-RAD 2 RECOMMENDATION: Routine screening mammogram of both breasts in 1 year.
== END | disposition home or self-care (01) ==
LOC: RADMAMWWP 11:19
PROVIDERS: ATTEND Internal Medicine
DX: Z12.31 Encounter for screening mammogram for malignant neoplasm of breast (principal); Z78.0 Asymptomatic menopausal state
CPT/HCPCS: 77063; 77067

== ENCOUNTER → 2021-02-27 | Outpatient (CLI) | payer MEDICARE | END | disposition home or self-care (01) | LOC: RADXRMAIN 11:48 | PROVIDERS: ATTEND Internal Medicine | DX: Z53.9 Procedure and treatment not carried out, unspecified reason (principal) ==